=== PATIENT | female | born 1975 | race Caucasian/White ===

== ENCOUNTER 2020-11-28 07:34 | Day surgery (SDC) | payer MEDICARE, MEDICAID ==
[2020-11-21 12:42] LABS: CLARITY,URINE SLIGHTLY CLOUDY (Clear); COLOR,URINE YELLOW (Yellow); GLUCOSE, URINE NEGATIVE (Neg); KETONES,URINE NEGATIVE (Neg); LEUKOCYTE ESTERASE ,URINE MODERATE (Neg); NITRITES, URINE NEGATIVE (Neg); OCCULT BLOOD,URINE NEGATIVE (Neg); PROTEIN,URINE NEGATIVE (Neg); UROBILINOGEN,URINE 0.2 E.U/dL (0.2-1.0)
[2020-11-21 12:42] LABS: BASOPHILS % (AUTO) 0.5 % (0-1); EOSINOPHILS # (AUTO) 0.2 X10'3 (0-0.9); LYMPHOCYTES # (AUTO) 3.3 X10'3 (1.1-4.8); LYMPHOCYTES % (AUTO) 40.1 % (21-51); MEAN CORPUSCULAR HEMOGLOBIN 30.8 PG (27.0-31.0); MEAN CORPUSCULAR HGB CONC 34.2 g/dL (33.0-36.5); MEAN CORPUSCULAR VOLUME 90.1 FL (78-98); MEAN PLATELET VOLUME 8.6 FL (7.4-10.4); MONOCYTES # (AUTO) 0.5 X10'3 (0-0.9); MONOCYTES % (AUTO) 6.2 % (2-12); NEUTROPHILS # (AUTO) 4.2 X10'3 (1.8-7.7); NEUTROPHILS % (AUTO) 50.2 % (42-75); PRE OP HEMATOCRIT 43.2 % (35.0-45.0); PRE OP HEMOGLOBIN 14.7 g/dL (12.0-16.0); PRE OP PLATELET COUNT 351 X10'3 (140-440); RED BLOOD COUNT 4.79 X10'6 (4.20-5.60); RED CELL DISTRIBUTION WIDTH 13.4 % (11.5-14.5)
[2020-11-21 12:47] LABS: UA COLLECTION TYPE CLN CATCH MIDSTREAM
[2020-11-21 12:49] LABS: BACTERIA,URINE 3+ /HPF (Neg); RBC,URINE NONE SEEN /HPF (0-2); SQUAMOUS EPITHELIAL CELL,UR MANY /LPF (FEW)
[2020-11-21 12:53] LABS: PRE OP INR 0.9 INR; PRE OP PROTIME 9.7 SECONDS (9.0-12.0)
[2020-11-21 13:01] LABS: ALBUMIN 4.1 G/DL (3.4-5.0); ALBUMIN/GLOBULIN RATIO 1.1 (1.1-1.5); ALKALINE PHOSPHATASE 110 IU/L (46-116); BLOOD UREA NITROGEN 13 MG/DL (7-18); BUN/CREATININE RATIO 16.5 (6.6-38.0); CALCIUM 9.4 MG/DL (8.5-10.1); CHLORIDE 105 MMOL/L (99-107); CREATININE 0.79 MG/DL (0.40-0.90); PRE OP ALT 29 U/L (30-65); PRE OP ANION GAP 12 (8-16); PRE OP AST 15 U/L (10-37); PRE OP BILIRUB, TOTAL 0.2 MG/DL (0.0-1.0); PRE OP GLUCOSE 93 MG/DL (70-104); PRE OP POTASSIUM 3.9 MMOL/L (3.4-5.1); PRE OP SODIUM 142 MMOL/L (135-145); TOTAL CARBON DIOXIDE 25.2 MMOL/L (24-32); eGFR 78 ML/MIN
[~2020-11-28] VITALS: Ht 157.5 cm; Wt 98.0 kg
[~2020-11-28 07:34] MED LIST: ALBU8HFA PO; ceFOXitin 2GM-NS 100mL ADDvant 100 ML IV ONE; famotidine 20mg tablet PO ONE; ringers solution, lacted 1,000 ML IV SCH
[2020-11-28 07:50] VITALS: BP 98/76
[2020-11-28] MEDS ORDERED: proCHLORperazine 10 MG/2 ml inj IV PRN (08:35)
[2020-11-28] MEDS ORDERED: ondansetron/PF 4mg/2ml inj IV PRN (08:35)
[2020-11-28] MEDS ORDERED: morphine 4 MG/ML inj SYRINge IV PRN (08:35)
[2020-11-28] MEDS ORDERED: morphine 2 MG/ML inj. syringe IV PRN (08:35)
[2020-11-28] MEDS ORDERED: ringers solution, lacted 1,000 ML IV SCH (08:35)
[2020-11-28] MEDS ORDERED: meperidine/PF 25mg/ml syringe IV PRN ×3 (08:35)
[2020-11-28] MEDS ORDERED: albuterol 2.5 MG/3 ML nebule NEB ONE (09:15)
[2020-11-28] MEDS ORDERED: sevoflurane 250ml liquid IH ONE (09:37)
[2020-11-28] MEDS ORDERED: ondansetron/PF 4mg/2ml inj ONE (09:37)
[2020-11-28] MEDS ORDERED: dexamethasone sod phosphate 10mg/ml inj ONE (09:37)
[2020-11-28] MEDS ORDERED: fentaNYL/PF 50MCG/1 ML 2ML syringe ONE ×2 (09:45→09:48)
[2020-11-28] MEDS ORDERED: midazolam 2 mg/2 ml injection ONE (09:45)
[2020-11-28] MEDS ORDERED: LIDOcaine 2% (20mg/ml) 5ml vial ONE (09:46)
[2020-11-28] MEDS ORDERED: propofol inj 20 ML IV ONE (09:46)
[2020-11-28] MEDS ORDERED: ketorolac trometh. 30mg/ml inj. ONE (10:15)
[2020-11-28 10:30] VITALS: BP 99/80
--- NOTE | 2020-11-28 10:30 | NUR ---
ADMITTED TO PACU FROM OR ACCOMPANIED BY ANESTHESIA. INTIAL PHYSICAL ASSESSMENT DONE AND RECORDED. REPORT RECEIVED FROM ANESTHESIA.
[2020-11-28 10:40] VITALS: BP 100/78
[2020-11-28] MEDS ORDERED: HYDROcodone/acetaminophen 10/325mg tab PO ONE (10:40)
[2020-11-28 10:50] VITALS: BP 105/81
[2020-11-28 11:00] VITALS: BP 118/71
[2020-11-28 11:10] VITALS: BP 110/70
--- NOTE | 2020-11-28 11:20 | NUR ---
DISCHARGE CRITERIA MET, DISCHARGE INSTRUCTIONS GIVEN, DEMONSTRATES VERBAL UNDERSTANDING. DISCHARGED HOME IN GOOD CONDITION.
== END 2020-11-28 11:20 | disposition home or self-care (01) ==
LOC: PAS 07:34
PROVIDERS: ATTEND Obstetrics & Gynecology
DX: N93.9 Abnormal uterine and vaginal bleeding, unspecified (principal); J45.909 Unspecified asthma, uncomplicated; E66.01 Morbid (severe) obesity due to excess calories; Z20.828 Contact with and (suspected) exposure to other viral communicable diseases; Z79.899 Other long term (current) drug therapy; Z98.890 Other specified postprocedural states; Z90.49 Acquired absence of other specified parts of digestive tract; Z98.51 Tubal ligation status
CPT/HCPCS: 36415; 58353; 80053; 81001; 82948; 85025; 85610; 85730; 86885; 86900; 86901; 87635; 93005; 94640; 94760; A4649; J0694; J1885; J2001; J2250; J2704; J3010; J7030; A4355; A4618; J1100; J2405; J7120

== ENCOUNTER 2021-03-11 14:08 | Emergency (ER) | payer BC, MEDICARE, MEDICAID ==
[~2021-03-11] VITALS: Ht 157.5 cm; Wt 99.1 kg
[~2021-03-11 14:08] MED LIST changes: -ceFOXitin 2GM-NS 100mL ADDvant 100 ML IV ONE; -famotidine 20mg tablet PO ONE; -ringers solution, lacted 1,000 ML IV SCH
[2021-03-11 14:24] VITALS: BP 113/65
== END 2021-03-11 16:07 | disposition left against medical advice (07) ==
LOC: ER 14:08
DX: M79.641 Pain in right hand (principal); Z53.21 Procedure and treatment not carried out due to patient leaving prior to being seen by health care provider
CPT/HCPCS: 73130

== ENCOUNTER 2021-04-25 19:00 | Emergency (ER) | payer BC, MEDICARE, MEDICAID ==
[~2021-04-25] VITALS: Ht 157.5 cm; Wt 97.7 kg
[2021-04-25 19:06] VITALS: BP 103/82
[2021-04-25] MEDS ORDERED: acetaminophen 325mg tablet PO ONE (20:05)
[2021-04-25] MEDS ORDERED: ketorolac trometh. 30mg/ml inj. IM ONE (20:05)
== END 2021-04-25 21:03 | disposition home or self-care (01) ==
LOC: ER 19:01
DX: S83.91XA Sprain of unspecified site of right knee, initial encounter (principal); J44.9 Chronic obstructive pulmonary disease, unspecified; G89.29 Other chronic pain; F15.90 Other stimulant use, unspecified, uncomplicated; Z87.440 Personal history of urinary (tract) infections; Z90.49 Acquired absence of other specified parts of digestive tract; Z98.890 Other specified postprocedural states; Z72.89 Other problems related to lifestyle; Z79.899 Other long term (current) drug therapy; X50.1XXA Overexertion from prolonged static or awkward postures, initial encounter; Y93.01 Activity, walking, marching and hiking; Y92.89 Other specified places as the place of occurrence of the external cause; Y99.8 Other external cause status
CPT/HCPCS: 96372; 99283; J1885

== ENCOUNTER 2022-03-19 11:06 | Inpatient (IN) | payer BC, MEDICARE, MEDICAID ==
[~2022-03-19] VITALS: Ht 157.5 cm; Wt 96.7 kg
[2022-03-19] MEDS ORDERED: risperiDONE 2mg tablet PO ONE (11:40)
[2022-03-19 11:55] LABS: BASOPHILS % (AUTO) 0.3 % (0-1); EOSINOPHILS % (AUTO) 0 % (0-6); HEMATOCRIT 44.4 % (35.0-45.0); HEMOGLOBIN 14.9 g/dl (12.0-16.0); LYMPHOCYTES # (AUTO) 0.8 X10'3 (1.1-4.8); LYMPHOCYTES % (AUTO) 8.3 % (21-51); MEAN CORPUSCULAR HEMOGLOBIN 30.1 PG (27.0-31.0); MEAN CORPUSCULAR HGB CONC 33.7 g/dL (33.0-36.5); MEAN CORPUSCULAR VOLUME 89.3 FL (78-98); MEAN PLATELET VOLUME 9.3 FL (7.4-10.4); MONOCYTES # (AUTO) 0.7 X10'3 (0-0.9); MONOCYTES % (AUTO) 6.7 % (2-12); NEUTROPHILS # (AUTO) 8.4 X10'3 (1.8-7.7); NEUTROPHILS % (AUTO) 84.7 % (42-75); PLATELET COUNT 324 X10'3 (140-440); RED BLOOD COUNT 4.97 X10'6 (4.20-5.60); RED CELL DISTRIBUTION WIDTH 13.2 % (11.5-14.5); WHITE BLOOD COUNT 9.9 X10'3 (4.5-11.0)
[2022-03-19 12:01] LABS: CLARITY,URINE SLIGHTLY CLOUDY (Clear); COLOR,URINE YELLOW (Yellow); GLUCOSE, URINE 250 mg/dl (Neg); KETONES,URINE NEGATIVE (Neg); LEUKOCYTE ESTERASE ,URINE TRACE (Neg); NITRITES, URINE NEGATIVE (Neg); OCCULT BLOOD,URINE NEGATIVE (Neg); PH,URINE 5.5 (4.8-8.0); PROTEIN,URINE NEGATIVE (Neg); UROBILINOGEN,URINE 0.2 E.U/dL (0.2-1.0)
[2022-03-19 12:03] LABS: URINE HCG NEGATIVE (NEG)
[2022-03-19 12:10] LABS: UA COLLECTION TYPE NON-SPECIFIED
[2022-03-19 12:11] LABS: RBC,URINE NONE SEEN /HPF (0-2); WBC,URINE 30-50 /HPF (0-4)
[2022-03-19 12:12] LABS: ALANINE AMINOTRANSFERASE 43 U/L (12-78); ALBUMIN 4.5 G/DL (3.4-5.0); ALBUMIN/GLOBULIN RATIO 1.3 (1.1-1.5); ALKALINE PHOSPHATASE 85 IU/L (46-116); ANION GAP 15 (8-16); ASPARTATE AMINO TRANSFERASE 29 U/L (10-37); BILIRUBIN,TOTAL 0.8 MG/DL (0.1-1.0); BLOOD UREA NITROGEN 14 MG/DL (7-18); BUN/CREATININE RATIO 14.7 (6.6-38.0); CALCIUM 9.3 MG/DL (8.5-10.1); CHLORIDE 100 MMOL/L (99-107); CREATININE 0.95 MG/DL (0.40-0.90); GLUCOSE 206 MG/DL (70-104); POTASSIUM 3.8 MMOL/L (3.5-5.1); SODIUM 137 MMOL/L (135-145); TOTAL CARBON DIOXIDE 21.7 MMOL/L (24-32); TOTAL PROTEIN 7.9 G/DL (6.4-8.2); eGFR 63 ML/MIN
[2022-03-19 12:12] LABS: BACTERIA,URINE 2+ /HPF (Neg); FINE GRANULAR CAST 0-3 /LPF (NEGATIVE); MUCUS STRANDS FEW /LPF (Neg); SQUAMOUS EPITHELIAL CELL,UR MANY /LPF (FEW)
[2022-03-19 12:14] LABS: URINE AMPHETAMINE SCREEN NEGATIVE (Neg); URINE BARBITUATE SCREEN NEGATIVE (Neg); URINE BENZODIAZEPINES SCREEN NEGATIVE (Neg); URINE CANNABINOID SCREEN NEGATIVE (Neg); URINE COCAINE SCREEN NEGATIVE (Neg); URINE METHADONE SCREEN NEGATIVE (Neg); URINE OPIATE SCREEN NEGATIVE (Neg); URINE PHENCYCLIDINE SCREEN NEGATIVE (Neg)
[2022-03-19] MEDS ORDERED: cephalexin 250mg capsule PO SCH (12:20)
[2022-03-19] MEDS ORDERED: cephalexin 250mg capsule PO ONE (12:20)
[2022-03-19 12:22] LABS: ETHANOL < 0.010 GM/DL (0.0-0.010)
[2022-03-19 12:24] LABS: VALPROATE < 3.0 UG/ML (50-100)
--- NOTE | 2022-03-19 12:35 | NUR ---
Patient arrived from ED to [facility] at 1235. Bed admitted to Bed #22. Patient refused to eat lunch and informed "I ate over in the other side." Patient changed into a hospital gown as their were green hospital scrubs for patients available. Patient being held on a 5150 related to incidents which occurred this morning. Patient has a history of Asthma, UTI, Back Pain & Depression, and surgical history includes appy, cholecystectomy, and tonsillectomy (derived from ED Documentation. PCT met with patient as soon as she arrived to [facility] to instruct to remove clothing. Patient immediately started to argue with her and stated the following "You aren't going to take my belongings, and when asked to remove her shoes so they can be stored in the locker room, patient stated "I don't care, I'm not doing it for you. Patient remained behind the closed curtain while PCT was ready to assist patient to change into her hospital gown, and patient stated "I need my privacy," when the PCT attempted to open the curtain. Attempted to administer Ativan 2mg po at 1400, and patient stated "I'm not taking anymore medication." Explained to the patient that the ED MD ordered Ativan, and she again stated "I'm not taking your medication."
[2022-03-19] MEDS ORDERED: LORazepam 1 MG tablet PO ONE (13:00)
--- NOTE | 2022-03-19 13:41 | NUR ---
Faxed [facility] packet.
--- NOTE | 2022-03-19 14:15 | NUR ---
Completed Physical Assessment and entered results into the computer. Patient is talkative and lacks insight to current situation and why she is here. Patient will not disclose what occurred today that led up to her coming to [facility]. Patient has become less frustrated and more talkative as the day has progressed. Patient will not disclose information about her family, but will list multiple friends that know she is here, and will come up and take her home. Patient has been drinking lots of fluids and using the bathroom frequently throughout the day. Patient appears much calmer than when she initially came over from the ED.
[2022-03-19] MEDS ORDERED: ALBU18HF2 INH (16:31)
[2022-03-19] MEDS ORDERED: LEVO25TA2 PO (16:31)
[2022-03-19] MEDS ORDERED: BUPR150T8 PO (16:31)
[2022-03-19] MEDS ORDERED: DIVA500T9 PO (16:31)
--- NOTE | 2022-03-19 17:19 | NUR ---
Per Saul from [facility], reviewed the 5150 has rewritten to adequately account for today's events and his interview with the patient and specific facts related to the patient. Per Saul the 5150 reads:"5150 completed by [place] [employer] for Danger to Self and mental health evaluation by [facility] Crisis Response Team at [facility]. Additional information is recorded under the section titles "Specific Facts," written as "Sandie is confused, disorganized in thought process; she is unable to report viable plan for food, clothing and care home, has no benefitted from family support." Patient started folding all of the blankets on her bed and putting them on the desk at the Nurse's Station. When asked by FRANK Roca why she was putting the blankets at the Nurse's Station, the patient stated "My family should be here anytime to pick me up."
[2022-03-19] MEDS ORDERED: BUPR-317 PO (17:25)
--- NOTE | 2022-03-19 17:45 | NUR ---
Patient went over to the patient who was in Bed #21, and apologized to him for "talking so loudly, while he was trying to sleep. Patient in Bed #20 did not acknowledge the apology and walked away from the patient. Waiting for dinner at this time. Will continue to monitor.
--- NOTE | 2022-03-19 18:04 | NUR ---
Gave report to FRANK Swenson (NOCS) with questions answered.
--- NOTE | 2022-03-19 18:49 | NUR ---
The patient is sitting at the end of her bed watching staff at the nursing station. One to one with the patient to assess for severity of mental health symptoms. The patient did not eat her dinner and stated that she was waiting for her family to come get her. She then went on to state that she does not have any mental health problems at this time. When asked why she was brought here she was guarded and stated that was between her and her family. Mood appears to be elevated. She denies thoughts of wanting to harm herself or others. Her insight is very poor. She currently is being cooperative with staff.
[2022-03-19] MEDS: buPROPion SR 150mg tablet PO SCH (20:00)
--- NOTE | 2022-03-19 20:17 | NUR ---
The patient took her evening dose of depakote but declined her Wellbutrin explaining that at home she takes it only in the morning
--- NOTE | 2022-03-19 20:59 | NUR ---
The patient is resting on her bed quietly but awake
[2022-03-19] MEDS ORDERED: divalproex sod 250mg ER (24-hour) tablet PO SCH (21:00)
[2022-03-19 21:45] VITALS: BP 140/94
--- NOTE | 2022-03-20 03:32 | NUR ---
ADMIT NOTE: Patient admitted to [facility] at 2132. Patient will not sign any papers or answer any questions. She disagrees with everything said, and responds to questions with her own questions. 5150 states: Sandie is confused, disorganized in thought process. She is unable to report viable plan for food, clothing, and jail, and has not benefitted from family support.
[2022-03-20] MEDS: levoTHYROXINE 25mcg tablet PO SCH (07:48)
[2022-03-20] MEDS: buPROPion SR 150mg tablet PO SCH ×3 (07:48→20:00)
--- NOTE | 2022-03-20 15:18 | NUR ---
Nursing Progress Note: Sandie Legal hold: 5150 Client on involuntary for GD Report received from FRANK Saravia with use of SBAR. Why they are here: 5150 states: Sandie is confused, disorganized in thought process. She is unable to report viable plan for food, clothing, and usp, and has not benefitted from family support. Assessment What has happened this shift: Patient is resting quietly in bed at the start of the shift. Refuses breakfast. Appears paranoid and is resistive to 1:1 assessment. States, If anything happens to me the [unintelligible] know Im here. And the Feds too. Denies any mental health symptoms. Appears to have some paranoia and delusional thinking. Somewhat grandiose. Paces the unit at times. Hyper- verbal and intrusive. S/I, H/I: Denies A/VH: Denies Sleep: 1 hour in the morning. ADL's: Independent Group attendance: No Were meds taken: Yes Any med S/E: None observed or reported. Mental Status Exam Appearance: Middle aged appearing woman, short brown hair, neat, wearing green unit scrubs Eye contact: Good Behavior: Resistive to care, Anxious, social, intrusive Speech: Clear, hyper verbal Mood: Good. Affect: Congruent, full range Thought process: Disorganized, paranoid, tangential Thought Content: Paranoid believing that people are after her. Cognition: A/O x3 to self, place and time Insight: Poor Judgment: Poor Interventions PRN's used: None Therapeutic interventions: 1:1 assessment, establishment of rapport, therapeutic communication, encouraged pt to express her thoughts and feelings, active listening, medication administration/education/monitoring, provided distraction, direction, positive reinforcement, and Q15 minute safety checks. Restraints/seclusion/emergency medication: None Justification of Continued Inpatient Treatment: Pt is still in need of medication adjustments and monitoring in a safe and therapeutic environment until stable.
[2022-03-20 20:02] VITALS: BP 108/76
[2022-03-20] MEDS: divalproex sod 250mg ER (24-hour) tablet PO SCH (20:17)
--- NOTE | 2022-03-21 03:39 | NUR ---
Nursing Progress Note: Legal hold: 5150 Client on involuntary hold for GD Report received from FRANK King with use of SBAR. Why they are here: 5150 states: Sandie is confused, disorganized in thought process. She is unable to report viable plan for food, clothing, and fci, and has not benefitted from family support. Assessment What has happened this shift: Patient was out on the unit at shift change. She asked me how I was doing. I answered, then she began asking intrusive questions of me that I would not answer. The patient will not answer any of my questions, stating, "that is between me and my family. If I talk to anyone, it will be my family." Patient is resistive to all care. She has no problem asking other peers intrusive questions like, "what's wrong with you, why are you here?" Patient comes out of her room for snack time, eats and goes back to her room. Brought her HS meds. She refused Wellbutrin, then decided she would only take one of the four Depakote tablets for 250 mg. "I'm good, I don't need any more." S/I, H/I: Denies A/VH: Denies Sleep: 1 hour in the morning. ADL's: Independent Group attendance: No Were meds taken: Yes, only 250 mg of 1000 mg Depakote. Any med S/E: None observed or reported. Mental Status Exam Appearance: Middle aged appearing woman, short brown hair, neat, wearing green unit scrubs Eye contact: Good Behavior: Resistive to care, Anxious, social, intrusive Speech: Clear, hyper verbal Mood: Good. Affect: Congruent, full range Thought process: Disorganized, paranoid, tangential Thought Content: Paranoid believing that people are after her. Cognition: A/O x3 to self, place and time Insight: Poor Judgment: Poor Interventions PRN's used: None Therapeutic interventions: 1:1 assessment, establishment of rapport, therapeutic communication, encouraged pt to express her thoughts and feelings, active listening, medication administration/education/monitoring, provided distraction, direction, positive reinforcement, and Q15 minute safety checks. Restraints/seclusion/emergency medication: None Justification of Continued Inpatient Treatment: Pt is still in need of medication adjustments and monitoring in a safe and therapeutic environment until stable.
[2022-03-21] MEDS: levoTHYROXINE 25mcg tablet PO SCH (07:20)
[2022-03-21] MEDS: buPROPion SR 150mg tablet PO SCH ×3 (07:25→20:29)
--- NOTE | 2022-03-21 14:03 | NUR ---
Attempted to meet with Sandie to complete psychosocial assessment and she refused then she went on to talk about her friend at [facility] who needs a manager social media instead. Sandie's speech was rapid and pressured. She exhibited flight of ideas and grandiose delusions. Left message for her , Bk (ph# [phone]), requesting a call back as a means of gathering information. Attempted to reach her brother, Henri (ph# [phone]), and was unable to leave a message. JOSE ALEJANDRO Crawley
--- NOTE | 2022-03-21 15:42 | NUR ---
Nursing Progress Note: Sandie Legal hold: 5150 Client on involuntary for GD Report received from FRANK Saravia with use of SBAR. Why they are here: 5150 states: Sandie is confused, disorganized in thought process. She is unable to report viable plan for food, clothing, and fdc, and has not benefitted from family support. Assessment What has happened this shift: Patient is resting quietly in bed at the start of the shift. Paces the unit prior to breakfast and socializes with her peers. Speech is loud and she is intrusive. Refuses Wellbutrin stating she took it yesterday and therefore does not want it today. Patient was reminded that she refused Wellbutrin yesterday as well to which the patient becomes somewhat irritable and paranoid. She states, I dont know what pills you are giving me. They could be anything. S/I, H/I: Denies A/VH: Denies Sleep: 1 hour in the morning. ADL's: Independent Group attendance: No Were meds taken: Refused Wellbutrin Any med S/E: None observed or reported. Mental Status Exam Appearance: Middle aged appearing woman, short brown hair, neat, wearing green unit scrubs Eye contact: Good Behavior: Resistive to care, Anxious, social, intrusive Speech: Clear, hyper verbal Mood: Fine. Affect: Congruent, full range Thought process: Disorganized, paranoid, tangential Thought Content: Paranoid delusions that people are trying to harm her. Cognition: A/O x3 to self, place and time Insight: Poor Judgment: Poor Interventions PRN's used: None Therapeutic interventions: 1:1 assessment, establishment of rapport, therapeutic communication, encouraged pt to express her thoughts and feelings, active listening, medication administration/education/monitoring, provided distraction, direction, positive reinforcement, and Q15 minute safety checks. Restraints/seclusion/emergency medication: None Justification of Continued Inpatient Treatment: Pt is still in need of medication adjustments and monitoring in a safe and therapeutic environment until stable.
[2022-03-21] MEDS: ziprasidone 20mg capsule PO SCH ×2 (20:00→20:29)
[2022-03-21] MEDS: divalproex sod 250mg ER (24-hour) tablet PO SCH ×2 (20:29→21:00)
--- NOTE | 2022-03-21 22:19 | NUR ---
Nursing Progress Note: Sandie Legal hold: 5150 Client on involuntary for GD Report received from FRANK Saravia with use of SBAR. Why they are here: 5150 states: Sandie is confused, disorganized in thought process. She is unable to report viable plan for food, clothing, and senior care, and has not benefitted from family support. Assessment What has happened this shift: Pt was in the group room socializing with peers during the evening. Pt ate meal and snack in the group room. Pt refused HS meds. Pt was provided medications still packaged so she could examine the packages and she thanked me for this. Pt set aside Geodon, stating "I dont take that one." Explained to pt that provider has ordered this medication for her based on her history of taking it in the past. Pt states "Tonya never taken Geodon and Im not taking it now." Pt agreed to take the Wellbutrin so I took it out of the packaging and she stated "I dont take any purple pills." Explained it is the brand the hospital uses. Attempted to provide patient with medication education and she replied, "I have nurses in my family and they are the only ones I will discuss my medication with and they said I only take Welbutrin. Pt then decided she would take the Wellbutrin but not any Depakote. Handed pt the med cup and she states "I will take this to my room and take it later." Explained to pt that I have to be present when she takes medication and that she could not hold on to pills on the floor. Pt argued it is her right. Explained to pt I can bring them to her later when she goes to bed, she states "No I will keep the wellbutrin now, it's my right or Im not taking anything." Pt began to get agitated so I took the meds and left the room. Pt followed me yelling "I have witnesses you can't take my pills! I will call the [employer]! I need a phone!" Telephones were available to patient and she declined to use them demanding to speak to the charge nurse. Explained Charge nurse is on the phone and pt went back to the group room. Pt spent time talking with another patient in group room before going to bed. Offered medications to pt again, and again explained what medications were and she states she would like to discuss the medications with her family. "Besides I dont know who's dirty fingers have been all over those pills!" Explained medication is still in the packaging besides the Wellbutrin opened earlier still in the med cup. Pt states "things have happened in the past that I dont want to talk about but I need to discuss medications with my family." Pt thanked me for understanding and asked me to leave. S/I, H/I: Denies A/VH: Denies Sleep: see sleep hours ADL's: Independent Group attendance: No Were meds taken: Refused all medications Any med S/E: None observed or reported. Mental Status Exam Appearance: Middle aged appearing woman, short brown hair, neat, wearing green unit scrubs Eye contact: Good Behavior: Resistive to care, Anxious, social, intrusive Speech: Clear, hyper verbal Mood: hypomanic Affect: Congruent, full range Thought process: Disorganized, paranoid, tangential, grandiose Thought Content: Paranoid delusions Cognition: A/O x3 to self, place and time Insight: Poor Judgment: Poor Interventions PRN's used: None Therapeutic interventions: 1:1 assessment, establishment of rapport, therapeutic communication, encouraged pt to express her thoughts and feelings, active listening, medication administration/education/monitoring, provided distraction, direction, positive reinforcement, and Q15 minute safety checks. Restraints/seclusion/emergency medication: None Justification of Continued Inpatient Treatment: Pt is still in need of medication adjustments and monitoring in a safe and therapeutic environment until stable.
[2022-03-22] MEDS ORDERED: magnesium hydroxide 30ml (MOM) UD suspension PO PRN (00:15)
[2022-03-22] MEDS ORDERED: mag hydrox/Alum hydrox/simeth 30ml oral suspension PO PRN (00:15)
[2022-03-22] MEDS ORDERED: loperamide 2mg capsule PO PRN (00:15)
[2022-03-22] MEDS ORDERED: acetaminophen 325mg tablet PO PRN ×2 (00:15)
[2022-03-22 07:46] VITALS: BP 106/73
[2022-03-22] MEDS ORDERED: buproprion 150mg XL (24-hour) tablet PO SCH (08:00)
[2022-03-22] MEDS: ziprasidone 20mg capsule PO SCH ×2 (08:00→20:00)
[2022-03-22] MEDS: levoTHYROXINE 25mcg tablet PO SCH (09:00)
[2022-03-22] MEDS: buPROPion SR 150mg tablet PO SCH ×2 (09:00→20:00)
--- NOTE | 2022-03-22 10:46 | NUR ---
Initial: Pt admit for bipolar disorder. Currently on a regular diet and eating well, documented with mostly 100% PO intake meeting estimated nutrient needs. LBM 03/19 though unsure of accuracy as pt documented with no GI symptoms and moderate BM 03/21 per GI trends. PRN bowel care available. No nutrition intervention implemented at this time. Will continue to follow. Recommendations: 1) Continue regular diet 2) Bowel care PRN 3) Weekly scaled weights Addendum: 03/22/22 at [address] Amended: Links added.
--- NOTE | 2022-03-22 13:31 | NUR ---
INFO FROM Spoke to Sandie's , Bk (ph# [phone]), to gather information. He reported he and Sandie got 09/2021. Prior to them getting she was working at [employer] and had insurance through [employer] along with [employer] and Medicare. She had been on SSI prior to working at [employer] (not sure how long she was working there). He reported Sandie went off her medications and refused to see her doctor and refused to allow Bk to assist her with going to the doctor. He reported Sandie kicked him out of the house and he had been sleeping in his truck for the last 6 weeks. He reported Sandie is welcome to return home, however, he does not know if she wants to. Bk reported Sandie has 5 kids, 3 are adults, and the younger two (ages 15 and 17) live with Sandie's sister who has custody of them. He reported all 5 kids do not want anything to do with Sandie due to her mental health issues. Informed Bk of visiting hours and that he can call Sandie. He reported he would like to wait until she is a bit more stable to do so. JOSE ALEJANDRO Crawley
--- NOTE | 2022-03-22 17:35 | NUR ---
Nursing Progress Note: Sandie Legal hold: 5150 Client on involuntary for GD Report received from FRANK Weller with use of SBAR. Why they are here: 5150 states: Sandie is confused, disorganized in thought process. She is unable to report viable plan for food, clothing, and longterm, and has not benefitted from family support. Assessment What has happened this shift: Patient received sleeping in her room at shift change. She joined with peers in the group room for breakfast noted socializing appropriately. Patient endorsed that she is keeping it real this morning. She retreated back to her room after breakfast. Patient asked this scientific technical writer not to point the medication scanner toward her because it is sending a signal to them. Patient observed pointing out the window of her room. Patient endorsed that she is being watched by someone outside the window. She is noted to be paranoid and intrusive. Patient refused to take her scheduled Geodon, stating that her doctor doesnt want her taking it anymore. She denies SI/HI, AH or VH. However, appears to be responding to internal stimuli and VH. She was noted making nonsensical statements endorsing that she doesnt take no ones babies. Patient was observed sitting in her room reading a book periodically throughout the day. She joined in the group room for all meal and snack times today. S/I, H/I: Denies A/VH: Denies, however, appears to be responding to IS and VH Sleep: Pt slept 6.5 hours last night per NOC shift, no naps noted today. ADL's: Independent Group attendance: No group provided Were meds taken: Refused Geodon Any med S/E: None observed or reported. Mental Status Exam Appearance: Middle aged appearing woman, short brown hair, neat, wearing green unit scrubs Eye contact: Good Behavior: Resistive to care, anxious, intrusive Speech: Clear, hyper-verbal Mood: Keeping it real Affect: Congruent, full range Thought process: Disorganized, paranoid, tangential Thought Content: Paranoid delusions that people are watching her Cognition: A/O x3 to self, place and time Insight: Poor Judgment: Poor Interventions PRN's used: None Therapeutic interventions: 1:1 assessment, establishment of rapport, therapeutic communication, encouraged pt to express her thoughts and feelings, active listening, medication administration/education/monitoring, provided distraction, direction, positive reinforcement, and Q15 minute safety checks. Restraints/seclusion/emergency medication: None Justification of Continued Inpatient Treatment: Pt is still in need of medication adjustments and monitoring in a safe and therapeutic environment until stable.
[2022-03-22 19:50] VITALS: BP 142/123
[2022-03-22 19:51] VITALS: BP 131/85
[2022-03-22] MEDS: divalproex sod 250mg ER (24-hour) tablet PO SCH (21:00)
--- NOTE | 2022-03-22 21:00 | NUR ---
Nursing Progress Note: Sandie Legal hold: 5150 Client on involuntary for GD Report received from FRANK Hlul with use of SBAR. Why they are here: 5150 states: Sandie is confused, disorganized in thought process. She is unable to report viable plan for food, clothing, and long-term, and has not benefitted from family support. Assessment What has happened this shift: Pt is social and animated at shift change. She walks the halls talking with peers or on the phone. She is grandiose at times and says things like, "I have family that works here and in the , and they all know I am here. Tell the surveillance that I said michael, and also if they need help, I'm good at surveillance. " She refuses her HS medications after putting off taking them 3x. Each time she would say, "I am busy" or "I can't deal with that right now, it makes me stressed." Pt's 5150 hold is up at 2132 this evening. Pt is to become voluntary. RN spends time with pt going over what voluntary means and shows her the paper to sign. Pt reads the paper and states," So I can't sign this, I need a family member to be here with me. This is the wrong paper." RN reassures pt that this is the correct voluntary form, but she refuses to sign. she states she wants to be here, but will only sign "the right paper." "I am not ready to leave yet, I don't even have a ride." RN reassures pt that signing the paper does not mean she has to leave, but pt still refuses to sign. S/I, H/I: Denies A/VH: Denies but is responding to internal stimuli Sleep: see sleep hours ADL's: Independent Group attendance: No Were meds taken: Refused all medications Any med S/E: None observed or reported. Mental Status Exam Appearance: Middle aged appearing woman, short brown hair, neat, wearing green unit scrubs Eye contact: Good Behavior: Resistive to care, animated Speech: Clear, hyper verbal Mood: hypomanic Affect: Congruent Thought process: Disorganized, paranoid, grandiose Thought Content: Paranoid delusions Cognition: A/O x3 to self, place and time Insight: Poor Judgment: Poor Interventions PRN's used: None, declined all Therapeutic interventions: 1:1 assessment, establishment of rapport, therapeutic communication, encouraged pt to express her thoughts and feelings, active listening, medication administration/education/monitoring, provided distraction, direction, positive reinforcement, and Q15 minute safety checks. Restraints/seclusion/emergency medication: None Justification of Continued Inpatient Treatment: Pt is still in need of medication adjustments and monitoring in a safe and therapeutic environment until stable.
--- NOTE | 2022-03-22 23:00 | NUR ---
SLEEP NOTE PT is still awake at Q15 rounds, RN offers her PRN sleep medications but she declines. "I don't need those, because I am about to go to sleep, so please leave, thank you."
[2022-03-23] MEDS: ziprasidone 20mg capsule PO SCH ×2 (08:00→20:00)
[2022-03-23] MEDS: levoTHYROXINE 25mcg tablet PO SCH (09:04)
[2022-03-23] MEDS: buPROPion SR 150mg tablet PO SCH ×2 (09:04→20:00)
--- NOTE | 2022-03-23 17:11 | NUR ---
Nursing Progress Note: Sandie Legal hold: Voluntary Client on involuntary for GD Report received from Sandra Zartae RN with use of SBAR. Why they are here: 9895 states: Sandie is confused, disorganized in thought process. She is unable to report viable plan for food, clothing, and senior care, and has not benefitted from family support. Assessment What has happened this shift: Patient received sleeping in her room at shift change. She joined in the group room for breakfast with peers. Patient refused to take her scheduled Geodon, stating that she doesnt take capsules. She continues to present as disorganized, paranoid and intrusive. Patient refused vital sign monitoring this morning. She was observed crying quietly in the group room after breakfast. Upon interaction patient endorsed that she is not crying because shes psychotic. Patient proceeded to endorse that she was going to write down why she was crying but was unable to tell this contract technical writer. She continues to deny SI/HI, AH or VH. However, appears to be internally preoccupied. She was noted to be social with other peers on the unit. Patient was noted making nonsensical statements throughout the shift. She joined in the group room for all meal and snack times today. S/I, H/I: Denies A/VH: Denies, however, appears to be internally preoccupied Sleep: Pt slept 5.5 hours last night per NOC shift, no naps noted today. ADL's: Independent Group attendance: No group provided Were meds taken: Refused Geodon Any med S/E: None observed or reported. Mental Status Exam Appearance: Middle aged appearing woman, short brown hair, neat, wearing green unit scrubs Eye contact: Good Behavior: Resistive to care, anxious, intrusive Speech: Clear, hyper-verbal Mood: Hypomanic Affect: Congruent, full range Thought process: Disorganized, paranoid, tangential Thought Content: Meeting needs. Cognition: A/O x3 to self, place and time Insight: Poor Judgment: Poor Interventions PRN's used: None Therapeutic interventions: 1:1 assessment, therapeutic communication, encouraged pt to express her thoughts and feelings, active listening, medication administration/education/monitoring, provided distraction, direction, positive reinforcement, and Q15 minute safety checks. Restraints/seclusion/emergency medication: None Justification of Continued Inpatient Treatment: Pt is still in need of medication adjustments and monitoring in a safe and therapeutic environment until stable.
[2022-03-23] MEDS: divalproex sod 250mg ER (24-hour) tablet PO SCH (21:00)
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
[2022-03-24] MEDS: buPROPion SR 150mg tablet PO SCH ×3 (07:25→20:11)
[2022-03-24] MEDS: ziprasidone 20mg capsule PO SCH ×3 (07:27→20:11)
[2022-03-24] MEDS: levoTHYROXINE 25mcg tablet PO SCH (07:27)
[2022-03-24 07:40] VITALS: BP 124/86
[2022-03-24 08:25] LABS: CHOLESTEROL 157 MG/DL (0-200); HDL CHOLESTEROL 52 MG/DL (35-60); LDL CHOLESTEROL 79 MG/DL (50-100); TRIGLYCERIDES 138 MG/DL (20-135)
[2022-03-24 08:46] LABS: HEMOGLOBIN A1C 5.8 % (4.5-6.2)
--- NOTE | 2022-03-24 16:53 | NUR ---
Nursing Progress Note: Sandie Legal hold: Voluntary Client on involuntary for GD Report received from Sandra Zarate RN with use of SBAR. Why they are here: 5118 states: Sandie is confused, disorganized in thought process. She is unable to report viable plan for food, clothing, and residential, and has not benefitted from family support. Assessment What has happened this shift: Patient was observed walking around the unit socializing with another peer at shift change. She initially refused her routine blood draw this morning endorsing that she doesnt like the laundry detergent. Patient agreed to have blood drawn and was noted crying the entire time requiring comforting from staff. She continues to present as disorganized, anxious, paranoid and intrusive. Patient refused her scheduled Geodon this morning endorsing that she doesnt take that. Medication education provided to patient, however, she continued to decline. Patient denies SI/HI, AH or VH. However, appears to be internally preoccupied. She is noted making comments about being followed and watched, however, is unwilling to emphasize. When asked questions patient responds that it is her business and she doesnt need to tell anybody. Patients daughter called to talk to her later in the shift. Patient was notified and endorsed that she did not want to talk to her daughter. She is noted to be social with other peers on the unit. Patient was noted making nonsensical statements throughout the shift. She joined in the group room for all meal and snack times today. S/I, H/I: Denies A/VH: Denies, however, appears to be internally preoccupied Sleep: Pt slept 7 hours last night per NOC shift, no naps noted today. ADL's: Independent Group attendance: No Were meds taken: Refused Geodon Any med S/E: None observed or reported. Mental Status Exam Appearance: Middle aged appearing woman, short brown hair, neat, wearing green unit scrubs Eye contact: Good Behavior: Resistive to care, anxious, intrusive Speech: Clear, hyper-verbal Mood: Hypomanic Affect: Congruent, full range Thought process: Disorganized, paranoid, tangential Thought Content: Meeting needs. Cognition: A/O x3 to self, place and time Insight: Poor Judgment: Poor Interventions PRN's used: None Therapeutic interventions: 1:1 assessment, therapeutic communication, encouraged pt to express her thoughts and feelings, active listening, medication administration/education/monitoring, provided distraction, direction, positive reinforcement, and Q15 minute safety checks. Restraints/seclusion/emergency medication: None Justification of Continued Inpatient Treatment: Pt is still in need of medication adjustments and monitoring in a safe and therapeutic environment until stable.
[2022-03-24 20:00] VITALS: BP 144/84
[2022-03-24] MEDS: divalproex sod 250mg ER (24-hour) tablet PO SCH ×2 (20:11→21:00)
--- NOTE | 2022-03-25 01:51 | NUR ---
Nursing Progress Note: Sandie Legal hold: Voluntary Client on involuntary for GD Report received from Lizzie MARIE with use of SBAR. Why they are here: 8535 states: Sandie is confused, disorganized in thought process. She is unable to report viable plan for food, clothing, and group home, and has not benefitted from family support. Assessment What has happened this shift: Patient pacing the unit at change of shift. Pt initially refused vitals but this board writer was able to establish rapport with patient and got vital signs while she was standing in the hallway. Patient rambles on about I am not going to hurt anyone and I am not into body parts or anything. She refused her HS medications stating she will need to talk to the Dr about it because it doesnt look right. Pt up for snacks and made a phone call then went to bed. Pt restless for sleep and refused any sleeping aids. S/I, H/I: Denies A/VH: Denies, however, appears to be internally preoccupied Sleep: ADL's: Independent Group attendance: No Were meds taken: Refused HS meds Any med S/E: None observed or reported. Mental Status Exam Appearance: Middle aged appearing woman, short brown hair, neat, wearing green unit scrubs Eye contact: Good Behavior: Resistive to care, anxious, intrusive Speech: Clear, hyper-verbal Mood: Hypomanic Affect: Congruent, full range Thought process: Disorganized, paranoid, tangential Thought Content: Meeting needs. Cognition: A/O x3 to self, place and time Insight: Poor Judgment: Poor Interventions PRN's used: None Therapeutic interventions: 1:1 assessment, therapeutic communication, encouraged pt to express her thoughts and feelings, active listening, medication administration/education/monitoring, provided distraction, direction, positive reinforcement, and Q15 minute safety checks. Restraints/seclusion/emergency medication: None Justification of Continued Inpatient Treatment: Pt is still in need of medication adjustments and monitoring in a safe and therapeutic environment until stable.
[2022-03-25] MEDS: levoTHYROXINE 25mcg tablet PO SCH (07:35)
[2022-03-25] MEDS: buPROPion SR 150mg tablet PO SCH ×2 (07:38→20:00)
[2022-03-25] MEDS: ziprasidone 20mg capsule PO SCH ×2 (08:00→20:00)
--- NOTE | 2022-03-25 16:58 | NUR ---
Nursing Progress Note: Legal hold: Voluntary Client on voluntary GD Report received from nurse with use of SBAR: Sandra Skaggs RN Why are they here: 3721 states: Sandie is confused, disorganized in thought process. She is unable to report viable plan for food, clothing, and prison, and has not benefitted from family support. Assessment What has happened this shift: Received pt. sleeping in bed at the beginning of the shift, she awoke early and was observed to be talking on the telephone. This medical technical writer overheard pt. making what appeared to be grandiose delusional statements, "I stay up at night, doctors and nurses like me stay up at night." This medical technical writer greeted pt. and attempted to establish rapport, she presents as resistive to care, slightly irritable, and guarded. Pt. refused her scheduled Geodon reporting that she wants to wait and talk to her doctor in [place] before taking it, this was endorsed to WALT Conde. Pt. continued on in tangental and disorganized manner stating "I'm not prejudice and I'm not scared!" She denies any S/I, H/I, or A/V/SINGLETARY however appears to be internally preoccupied AEB observed to be talking aloud to herself at times. Pt. then goes on make further delusional statements in a sarcastic, slightly irritable manner regarding her belief that she knows more than other pediatric medical assistant. She then abruptly walked away refusing vital signs or physical assessment, stating, "No! You smell funny!" Pt. napped intermittently during the day and was observed to be interacting with others at intervals. S/I, H/I: Denies A/VH: Pt. denies any A/V/SINGLETARY, however she appears to be internally preoccupied AEB observed to be talking aloud to herself at times Sleep: Sleep hours are 3, pt. napped intermittently during the shift ADL's: Requires dome direction Group attendance: N/A Were meds taken: Pt. refused scheduled Geodon, this was endorsed to WALT Conde Any med S/E: None Mental Status Exam Appearance: Hair and clothing are somewhat disheveled Eye contact: Fair Behavior: Resistive to care, slightly irritable, and guarded Speech: Pressured Mood: Slightly irritable and guarded Affect: Labile Thought process: Tangental with disorganization Thought Content: Possible A/V/SINGLETARY and delusions Cognition: A&O X3 Insight: Poor Judgment: Poor Interventions PRN's used: None Therapeutic interventions:Introduced self and attempted to establish rapport, maintained a safe and supportive environment, ensured contract for safety, provided clear and simple instructions, provided medication education and encouragement, and maintained Q 15 min. safety checks. Restraints/seclusion/emergency medication: N/A Justification of Continued Inpatient Treatment: WALT Angel, pt. continues to require a safe and supportive environment and does not have a safe plan for discharge at this time.
[2022-03-25 19:33] VITALS: BP 125/84
[2022-03-25] MEDS: divalproex sod 250mg ER (24-hour) tablet PO SCH (21:00)
--- NOTE | 2022-03-26 00:09 | NUR ---
NURSING PROGRESS NOTE Legal Status: Voluntary Reason For Admit: 5150 states: Sandie is confused, disorganized in thought process. She is unable to report viable plan for food, clothing, and halfway, and has not benefitted from family support. What Happened This Shift: As a staff member was doing pts vital signs, an albuterol inhaler fell out of her pocket which was confiscated. Rn asks pt about the inhaler, she replies I had 3 inhalers, 1 in my house, one in my bag which they took, and one in my bra I have had it and it is my rescue inhaler so I need that. RN explained to pt why no medications are allowed on your person on the unit, she replied, you can go now. When asked about HS medications she replies, I cant talk about this right now because I am in the middle of something. When RN approaches pt again about HS medications, she refuses to take them and hands Rn a small handwritten note stating she bathes herself in her room and not the shower. discharge: Patient in need of crisis interruption and stabilization with medication management and monitoring in a safe and therapeutic environment until stable.
[2022-03-26] MEDS: ziprasidone 20mg capsule PO SCH ×2 (08:00→20:00)
[2022-03-26] MEDS: levoTHYROXINE 25mcg tablet PO SCH (08:14)
[2022-03-26] MEDS: buPROPion SR 150mg tablet PO SCH ×2 (08:14→20:00)
--- NOTE | 2022-03-26 17:03 | NUR ---
Nursing Progress Note: LIZ Legal hold: Voluntary Client on voluntary hold for GD Report received from RN with use of SBAR. Why they are here: Liz is confused, disorganized in thought process. She is unable to report viable plan for food, clothing, and fpc, and has not benefitted from family support. Assessment What has happened this shift: Patient was greeted in her room and asked to not be approached for medications until breakfast time. She refuses to answer any assessment questions and says its her business. I approached patient with her medications while she was eating breakfast and she asked to see the packaging of each medication, refusing to take Geodon. She says she needs to speak to her doctor in [place] about the Geodon. She attended the first group meeting and goes back and forth between her room and the community room. S/I, H/I: Denies A/VH: Denies Sleep: 1 hour in the morning. ADL's: Independent Group attendance: 1st group Were meds taken: Yes, all except Geodon. Says she will not take Geodon until she speaks to her doctor from [place] about it. Any med S/E: None observed or reported. Mental Status Exam Appearance: Middle aged appearing woman, short brown hair, neat, wearing green unit scrubs Eye contact: Good Behavior: Resistive to care, Anxious, intrusive Speech: Clear, hyper verbal Mood: Good. Affect: Congruent, full range Thought process: Disorganized, paranoid, tangential Thought Content: Paranoid believing that people are after her or trying to get in her business Cognition: A/O x3 to self, place and time Insight: Poor Judgment: Poor Interventions PRN's used: None Therapeutic interventions: 1:1 assessment, attempting to establish rapport, therapeutic communication, encouraged pt to express her thoughts and feelings, active listening, medication administration/education/monitoring, provided distraction, direction, positive reinforcement, and Q15 minute safety checks. Restraints/seclusion/emergency medication: None Justification of Continued Inpatient Treatment: Pt is still in need of medication adjustments and monitoring in a safe and therapeutic environment until stable.
[2022-03-26 20:00] VITALS: BP 105/72
[2022-03-26] MEDS: divalproex sod 250mg ER (24-hour) tablet PO SCH (21:00)
--- NOTE | 2022-03-26 23:37 | NUR ---
Nursing Progress Note: LIZ Legal hold: Voluntary Client on voluntary hold for GD Report received from RN with use of SBAR. Why they are here: Liz is confused, disorganized in thought process. She is unable to report viable plan for food, clothing, and skilled nursing, and has not benefitted from family support. Assessment What has happened this shift: Patient was in the community room watching TV with peers. Pt was sitting having her vitals done. Pt stated she couldnt talk to this internal communications writer while having her vitals done. Later pt was in the hallway with a stack of papers looking at a picture when this RN approached her. Pt stated she was doing ok and that she was writing down some things to keep her grounded. She refused HS meds stating that she needed to talk to her Dr in the [place] to get them straightened out. The pt then stated to this RN, I dont want to talk to you anymore only with Willem and my psychiatrist. Pt walked off to her room. S/I, H/I: Denies A/VH: Denies Sleep: ADL's: Independent Group attendance: Were meds taken: Refused HS meds Any med S/E: None observed or reported. Mental Status Exam Appearance: Middle aged appearing woman, short brown hair, neat, wearing green unit scrubs Eye contact: Good Behavior: Resistive to care, Anxious, intrusive Speech: Clear, hyper verbal Mood: Good. Affect: Congruent, full range Thought process: Disorganized, paranoid, tangential Thought Content: Paranoid believing that people are after her or trying to get in her business Cognition: A/O x3 to self, place and time Insight: Poor Judgment: Poor Interventions PRN's used: None Therapeutic interventions: 1:1 assessment, attempting to establish rapport, therapeutic communication, encouraged pt to express her thoughts and feelings, active listening, medication administration/education/monitoring, provided distraction, direction, positive reinforcement, and Q15 minute safety checks. Restraints/seclusion/emergency medication: None Justification of Continued Inpatient Treatment: Pt is still in need of medication adjustments and monitoring in a safe and therapeutic environment until stable.
[2022-03-27 08:00] VITALS: BP 122/80
[2022-03-27] MEDS: buPROPion SR 150mg tablet PO SCH (08:00)
[2022-03-27] MEDS: levoTHYROXINE 25mcg tablet PO SCH (08:00)
[2022-03-27] MEDS: ziprasidone 20mg capsule PO SCH (08:00)
--- NOTE | 2022-03-27 14:00 | NUR ---
TELEGRAPH MESSENGER IN ROOM: Upon entering patients room she was observed playing with a retread operator in her hands. The retread operator was confiscated and patient was reminded of unit rules. Patient endorsed that she has had the retread operator since she got here. Charge nurse made aware of situation.
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
[2022-03-27 19:47] VITALS: BP 121/82
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
[2022-03-28] MEDS: levoTHYROXINE 25mcg tablet PO SCH (07:58)
--- NOTE | 2022-03-28 16:59 | NUR ---
Nursing Progress Note: Sandie Legal hold: Voluntary Client on involuntary for GD Report received from FRANK Weller with use of SBAR. Why they are here: 2065 states: Sandie is confused, disorganized in thought process. She is unable to report viable plan for food, clothing, and half-way, and has not benefitted from family support. Assessment What has happened this shift: Patient received sleeping in bed at shift change. She refused morning assessment and vital sign monitoring despite several attempts and encouragement. Patient endorsed that nobody is to touch her due to her [place]. Patient also endorsed to this investment underwriter that she is [place] and has an privacy attorney so she cant be touched. She was receptive to her scheduled Synthroid medication this morning. Patient joined in the group room for breakfast with peers. She continues to present as irritable, guarded, withdrawn, and disorganized. Patient was observed writing pages upon pages of notes down on paper. She endorsed that she is writing down her thoughts but they are her personal business only. Patient noted carrying around a large stack of papers that she has written copious notes down on, refusing to set them down for even a brief moment. She denies SI/HI, AH or VH. However, appears to be internally preoccupied. She was noted making nonsensical statements throughout the shift. Patient unwilling to engage in conversation with this investment underwriter. When asked questions, patient endorses that she would like to talk to her psychiatrist about it but not the doctor here. She was noted isolating to her room the majority of the day. Patient observed writing down notes in her room throughout the day. Patient endorsed that she is frustrated but not frustrated when people disrupt her while she is writing down her thoughts. She joined in the group room for all meal and snack times today. S/I, H/I: Denies A/VH: Denies, however, appears to be internally preoccupied Sleep: Pt slept 3.75 hours last night per NOC shift, napped intermittently today. ADL's: Independent Group attendance: N/A Were meds taken: Took her scheduled Synthroid Any med S/E: None observed or reported. Mental Status Exam Appearance: Middle aged appearing woman, short brown hair, neat, wearing green unit scrubs Eye contact: Good Behavior: Resistive to care, anxious, intrusive, irritable Speech: Clear, hyper-verbal Mood: Hypomanic Affect: Congruent, full range Thought process: Disorganized, paranoid, tangential Thought Content: Meeting needs. Refuses to engage in conversation. Cognition: A&O x3 to self, place and time Insight: Poor Judgment: Poor Interventions PRN's used: None Therapeutic interventions: 1:1 assessment, therapeutic communication, encouraged pt to express her thoughts and feelings, active listening, medication administration/education/monitoring, provided distraction, direction, positive reinforcement, and Q15 minute safety checks. Restraints/seclusion/emergency medication: None Justification of Continued Inpatient Treatment: Pt is still in need of medication adjustments and monitoring in a safe and therapeutic environment until stable.
[2022-03-28] MEDS: olanzapine 10mg tablet PO SCH (20:43)
--- NOTE | 2022-03-29 01:17 | NUR ---
Nursing Progress Note: Sandie Legal hold: Voluntary Client on involuntary for GD Report received from FRANK Samuel with use of SBAR. Why they are here: 5150 states: Sandie is confused, disorganized in thought process. She is unable to report viable plan for food, clothing, and detention, and has not benefitted from family support. Assessment What has happened this shift: Patient received pacing the hallways with a stack of papers in her hand. She appears guarded, irritable, disorganized and withdrawn. When asking pt about her MH status she tells this RN that she is too busy to talk and walks away. She later asks this RN for some coffee and when told its at snack time 8PM she states oh yeah, Tonya been told that and were going to get that changed. She refuses assessment and her HS Alyce stating she needs to talk to her psychiatrist about medications. Pt retired to her room where she is talking with herself and making notes. Therapeutic interventions: 1:1 assessment, therapeutic communication, encouraged pt to express her thoughts and feelings, active listening, medication administration/education/monitoring, provided distraction, direction, positive reinforcement, and Q15 minute safety checks. Restraints/seclusion/emergency medication: None Justification of Continued Inpatient Treatment: Pt is still in need of medication adjustments and monitoring in a safe and therapeutic environment until stable.
[2022-03-29] MEDS: levoTHYROXINE 25mcg tablet PO SCH (09:39)
--- NOTE | 2022-03-29 17:50 | NUR ---
Nursing Progress Note: Legal hold: Voluntary Client on involuntary for GD Report received from FRANK Weller with use of SBAR. Why they are here: 7330 states: Sandie is confused, disorganized in thought process. She is unable to report viable plan for food, clothing, and assisted, and has not benefitted from family support. Assessment What has happened this shift: Received patient while she was sleeping in bed. Patient woke up before breakfast and was sitting in her room. Entered patients room at approximately 0750, with the computer, and patient immediately stated Oh, Meryl, I dont want you to come into my room Asked patient why? Patient stated I really dont like any of you entering my room for any reason. You all make me feel uncomfortable, and I dont want you in here. You know I really like you, but dont come in. Informed the patient that she is currently here on Voluntary Status. I informed the patient, and focused on giving her current information about her treatment plan. Informed the patient that she can go anytime she likes. I would just need to call the ahead of time before releasing you to get discharge orders. I also informed the patient that she is not in agreement to taking any medications that her Psychiatrist would like to order for her, so it is difficult to start feeling better and making good sound decisions about her life. I also informed the patient that she does not communicate with any peers or staff members, or attend Group Meetings. We do all of these things in this department to help all of our patients get better and transition back to home with the family. I asked the patient if we could talk to her family today about a plan to return home. Patient stated I dont think I am ready to go home yet. I informed the patient that she is not participating in any way with our program to improve her life and make good decisions, that she doesnt eat and each of these things are a hourly negotiation with all staff members. Patient smiled and wrote down what I said to her which was fine with me. I asked the patient to think about this over the next 24 hours. I also informed the patient that we need to enter the room from time to time, and it is not appropriate to tell staff they cannot enter the room. Informed patient that when I speak to her and complete the patient assessment and interview, I will come in her room for privacy during the conversation. Patient continued to self-isolate in her room, starting blaming her roommate for taking pillows off her bed, which was not accurate. S/I, H/I: Denies A/VH: Denies, however, appears to be internally preoccupied Sleep: 5.5 hours ADL's: Independent, Refuses to shower since admission. Group attendance: Were meds taken: Took her scheduled Synthroid Any med S/E: None observed or reported. Mental Status Exam Appearance: Middle aged appearing woman, short brown hair, neat, wearing green unit scrubs Eye contact: Good Behavior: Resistive to care, anxious, intrusive, irritable Speech: Clear, hyper-verbal Mood: Hypomanic Affect: Congruent, full range Thought process: Disorganized, paranoid, tangential Thought Content: Meeting needs. Refuses to engage in conversation. Cognition: A&O x3 to self, place and time Insight: Poor Judgment: Poor Interventions PRN's used: None Therapeutic interventions: 1:1 assessment, therapeutic communication, encouraged pt to express her thoughts and feelings, active listening, medication administration/education/monitoring, provided distraction, direction, positive reinforcement, and Q15 minute safety checks. Restraints/seclusion/emergency medication: None Justification of Continued Inpatient Treatment: Pt is still in need of medication adjustments and monitoring in a safe and therapeutic environment until stable.
[2022-03-29] MEDS: olanzapine 10mg tablet PO SCH (20:21)
--- NOTE | 2022-03-30 00:03 | NUR ---
Nursing Progress Note: Legal hold: Voluntary Report received from Sonali King art department head Why they are here: 0900 states: Sandie is confused, disorganized in thought process. She is unable to report viable plan for food, clothing, and mcc, and has not benefitted from family support. Assessment What has happened this shift: The patient has been up on the unit. She is appropriately dressed and neatly groomed. She is carrying a stack of papers that appear to be crammed with disorganized writing. She is dismissive whenever approached for an evening assessment. She repeatedly stated it was no ones business how she is doing and quickly becomes irritable. She stated that she is waiting for her family to get here but when asked when her family is coming she states it is no ones business. When asked when she had a bowel movement she replied, "That's my own personal business" She refused her HS zyprexa and stated the reason was because the med had, "caused my eyes to indotted in" She is attempting to direct staff and how they should care for the other patients and had to be redirected. When a female peer became agitated she went up to the patient and was in her personal space and had to be redirected. She remains gravely disabled but is currently hospitalized on a voluntary basis and has no court order for medications.
[2022-03-30] MEDS: levoTHYROXINE 25mcg tablet PO SCH ×2 (07:51→07:54)
--- NOTE | 2022-03-30 16:00 | NUR ---
Reassessment: Pt continues eating well with mostly 75-100% PO intake of meals and appears to be participating in snacks per application systems architect. Overall meeting estimated nutrient needs. [facility] 03/29. No nutrition intervention implemented at this time. Will continue to follow. Recommendations: 1) Continue regular diet 2) Bowel care PRN 3) Weekly scaled weights Addendum: 03/30/22 at [address] Amended: Links added.
--- NOTE | 2022-03-30 16:06 | NUR ---
Nursing Progress Note: Sandie Legal hold: Voluntary Client on involuntary for GD Report received from Sandra Skaggs RN with use of SBAR. Why they are here: 8770 states: Sandie is confused, disorganized in thought process. She is unable to report viable plan for food, clothing, and usp, and has not benefitted from family support. Assessment What has happened this shift: Received patient asleep. Pt. awoke for her medication and immediately became agitated and paranoid. Pt. refused her scheduled synthroid, and reported I know that medication made my pupils dilate I attempted to educate pt. about her medication and diagnosis requiring this medication, but she refused to listen and stated get out, we are done talking 1:1 assessment incomplete d/t pt. refusal to participate. Pt. ate her meals in the dining room with cohorts, but often isolated herself from others, she was observed looking around suspiciously with darting eyes. Pt. spent most of the shift in her room sitting on the edge of her bed or in the chair. Reports from nursing staff were pt. was observed responding to IS and speaking in a language other than [place]. Pt. was re approached later to complete assessment, but she refuses to talk stating I dont need you, I want my managing attorney. Staff notified telegraphic typewriter repairer pt. was disruptive during Bingo and left while responding to IS. S/I, H/I: Refused to answer A/VH: Refused to answer, presents as internally preoccupied Sleep: 4.75 hrs per NOC, no naps ADL's: Independent, shower refused Group attendance: No Were meds taken: Refused Any med S/E: None observed or reported. Mental Status Exam Appearance: Middle aged female, short hair, and wearing unit scrubs Eye contact: Good Behavior: Anxious, agitated Speech: Hyper-verbal Mood: Hypomanic Affect: Congruent with mood Thought process: Disorganized, paranoid, delusional Thought Content: Meeting needs Cognition: A&O x3 to self, place and time Insight: Poor Judgment: Poor Interventions PRN's used: None Therapeutic interventions: 1:1 assessment, therapeutic communication, encouraged pt to express her thoughts and feelings, active listening, medication administration/education/monitoring, provided distraction, direction, positive reinforcement, and Q15 minute safety checks. Restraints/seclusion/emergency medication: None Justification of Continued Inpatient Treatment: Pt is still in need of medication adjustments and monitoring in a safe and therapeutic environment until stable.
[2022-03-30] MEDS: olanzapine 10mg tablet PO SCH (21:00)
--- NOTE | 2022-03-31 03:35 | NUR ---
NURSING PROGRESS NOTE Legal Status: Voluntary Reason For Admit: 5150 states: Sandie is confused, disorganized in thought process. She is unable to report viable plan for food, clothing, and chcf, and has not benefitted from family support. What Happened This Shift: Pt refused vital signs and physical assessment. She is very resistive to care and is dismissive of staff members. RN approaches pt and she says, "um can you please knock and announce your name " I am busy, please go away, thanks." Pt is still refusing HS medications and will not answer 1:1 questions with RN. discharge: Patient in need of crisis interruption and stabilization with medication management and monitoring in a safe and therapeutic environment until stable.
[2022-03-31] MEDS: levoTHYROXINE 25mcg tablet PO SCH (07:46)
--- NOTE | 2022-03-31 15:25 | NUR ---
Nursing Progress Note: Sandie Legal hold: Voluntary Client on involuntary for GD Report received from Sandra Skaggs RN with use of SBAR. Why they are here: 4264 states: Sandie is confused, disorganized in her thought process. She is unable to report viable plan for food, clothing, and group home, and has not benefitted from family support. Assessment What has happened this shift: Received patient awake in bed. Pt. refused her routine medications this morning stating Iv talked to allot of people about those medications, I dont want anything from you Pt. could not be educated and has fixed beliefs re this issue. Later senior underwriter reproached pt. and attempted to complete 1:1 assessment; pt. jumped out of bed and stormed to the bathroom stating get the hell out Full assessment unable to be completed. Pt. did leave her room for meals and ate in the dining room with cohorts. She remains isolated and paranoid. Later in the afternoon pt. could be heard yelling and was found to be responding to IS. S/I, H/I: Refused A/VH: Refused, observed responding to IS Sleep: 7.25 hrs per NOC, no naps ADL's: Independent Group attendance: N/A Were meds taken: Refused Any med S/E: None observed or reported. Mental Status Exam Appearance: Middle aged female, short hair, and wearing unit scrubs Eye contact: Fair Behavior: Irritable Speech: Hyper-verbal at times Mood: Hypomanic Affect: Congruent with mood Thought process: Disorganized, paranoid, delusional Thought Content: Meeting needs Cognition: A&O x3 to self Insight: Poor Judgment: Poor Interventions PRN's used: None Therapeutic interventions: 1:1 assessment, therapeutic communication, encouraged pt to express her thoughts and feelings, active listening, medication administration/education/monitoring, provided distraction, direction, positive reinforcement, and Q15 minute safety checks. Restraints/seclusion/emergency medication: None Justification of Continued Inpatient Treatment: Pt is still in need of medication adjustments and monitoring in a safe and therapeutic environment until stable.
[2022-03-31] MEDS: olanzapine 10mg tablet PO SCH (21:00)
--- NOTE | 2022-04-01 01:36 | NUR ---
NURSING PROGRESS NOTE Legal Status: Voluntary Reason For Admit: 5150 states: Sandie is confused, disorganized in thought process. She is unable to report viable plan for food, clothing, and penitentiary, and has not benefitted from family support. What Happened This Shift: Pt is more visible on the unit this shift, sitting in the community room at a table with a stack of papers strewn about. When Rn approaches her and introduces herself, pt waves her off and says," yea okay, I will let you know if I need you, thanks, bye." She is very resistive to care and refuses vitals and 1:1 assessment. Pt walks by RN again and tells her she looks like someone she knows. When approached about her HS medication, she states, "not now, thanks" and briskly walks away. This happens a second time as well. PT does not take her HS medication. discharge: Patient in need of crisis interruption and stabilization with medication management and monitoring in a safe and therapeutic environment until stable.
[2022-04-01] MEDS: levoTHYROXINE 25mcg tablet PO SCH (08:00)
--- NOTE | 2022-04-01 17:52 | NUR ---
Nursing Progress Note: Legal hold: Voluntary Client on involuntary for GD Report received from FRANK Hughes with use of SBAR. Why they are here: 8890 states: Sandie is confused, disorganized in thought process. She is unable to report viable plan for food, clothing, and halfway, and has not benefitted from family support. Assessment What has happened this shift: Received patient while she was sleeping in bed. Patient woke up and came down to the dining room with a large pile of papers that had handwritten pen all over them. Patient talked to herself during breakfast and lunch, and during most of the day in the Community Room. Patient is resistive to care. and refused her Synthroid, that was due at 0800. Patient responded with very short answers while walking away from staff immediately after question was asked of her. Patient entered the Community Room and began sitting her papers down she carried in her arms, would look the patients that were sitting at the table with a negative expression, pick her papers up and walk to a different table, doing the same practice at 4 tables prior to settling in to one spot at one table. Called patients name just before her breakfast tray arrived. She walked up to my computer in the Community Room, then said What? Informed the Patient that I would like to give her the Synthroid, and she stated For what, informed the patient it was for Thyroid Replacement, and patient started arguing about the way that I pronounced the Synthroid. 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 Again asked patient to give me an answer whether she was going to take her Synthroid? Patient stated No. and walked away. The patient then walked over to a table and said I cant believe she is a Nurse. Multiple peers corrected the patient stating She is a Nurse and I dont know why you are hassling her. Patient then returned back to my computer station where my medications were located, and asked Do you work 8 hour or 12 hour shifts. Informed the patient that I work 12 hour shifts here. The patient then said You are suppose to work 8 hour shifts. I dont know where you got these 12 hour shifts from. You probably made it up, but I am a Nurse, and I know what Im talking about, and we all work 8 hour shifts. Patient continued to make untoward comments regarding my ability of me to know if I worked 8 or 12 hour shifts for 15 minutes. Breakfast arrived and patient began to eat her food that had arrived. Patient continued to talk to herself during the entire breakfast, move from one seat to another all over the Community Room, then pick all of her papers back up and move again. Patients own volume continued to get louder and louder while she was delusional and talking out loud. The patients voice got so loud that multiple other peers came over to me and asked Can you tell her to quiet down? The patient was then asked to keep the noise down while others were reading books, listening to TV or watching movies. The patient lowered her voice a bit, but then it started going back up again. Patient then picked her papers up and relocated to her room, and fell asleep for about an hour. Patient came to the Community Room for lunch, and received snack in the Community Room. Patient did tell me at approximately 1100, I want my clothes because I am leaving today, and want to put my clothes on now. You cannot keep me here because Im here voluntarily. Informed the patient, as had Fernando and Stefani, PCT, that after the sees you, he will review your discharge with you, then the Techs will go through your belongings with you, and turn in all of your paperwork. Patient continued her negative banter and informed me Im not waiting for you to get my things, I will just get them myself. I told you I want them, Ill go get them myself and ask the tech myself. Patient then stated Im losing my patience with you. I walked away from the patient at that point and informed Fernando that she was thinking she is going home. S/I, H/I: Denies A/VH: Delusional self talk throughout the daytime. Sleep: 5.0 hours of sleep. Did not nap today. ADL's: Independent, Refuses to shower since admission. Group attendance: No Group Meeting Held Today. Were meds taken: Refused her scheduled Synthroid Any med S/E: None observed or reported. Mental Status Exam Appearance: Middle aged appearing woman, short brown hair, neat, wearing green unit scrubs Eye contact: Good Behavior: Resistive to care, anxious, intrusive, negative in all talk toward staff members, poor respect from peers due to negative talk. Speech: Clear, hyper-verbal Mood: Hypomanic Affect: Restive to Care, full range Thought process: Disorganized, Paranoid, tangential when speaking to herself. Thought Content: Refuses to engage in conversation. Cognition: A&O x3 to self, place and time Insight: Poor Judgment: Poor Interventions PRN's used: None Therapeutic interventions: 1:1 assessment, therapeutic communication, encouraged pt to express her thoughts and feelings, active listening, medication administration/education/monitoring, provided distraction, direction, positive reinforcement, and Q15 minute safety checks. Restraints/seclusion/emergency medication: None Justification of Continued Inpatient Treatment: Pt is still in need of medication adjustments and monitoring in a safe and therapeutic environment until stable.
[2022-04-01] MEDS: olanzapine 10mg tablet PO SCH (21:00)
--- NOTE | 2022-04-02 01:39 | NUR ---
Nursing Progress Note: Sandie Legal hold: Voluntary Client on involuntary for GD Report received from FRANK King with use of SBAR. Why they are here: 5150 states: Sandie is confused, disorganized in thought process. She is unable to report viable plan for food, clothing, and long-term, and has not benefitted from family support. Assessment What has happened this shift: Received patient sitting up in bed writing on notepaper with a stack of papers next to her. (She had just talked with WALT Kim.) Approached pt to assess mental status and the pt said to this headline writer I am too busy right now to talk to you, I just spoke to someone and Im not talking with you. Pt irritable and resistive to care. Pt was up in the community room for a snack holding her stack of papers. Later, the pt was observed walking the hallway requesting another snack. Pt refused HS medications. Pt observed in her room responding to internal stimuli. Pt is hyper verbal and talking to herself non-stop in her room. Pt told several times by PCT that her roommate is trying to sleep and could she be more considerate of other. WALT Kim will be discharging her tomorrow and place her on a 5150. Interventions PRN's used: None Therapeutic interventions: 1:1 assessment, therapeutic communication, encouraged pt to express her thoughts and feelings, active listening, medication administration/education/monitoring, provided distraction, direction, positive reinforcement, and Q15 minute safety checks. Restraints/seclusion/emergency medication: None Justification of Continued Inpatient Treatment: Pt is still in need of medication adjustments and monitoring in a safe and therapeutic environment until stable.
[2022-04-02] MEDS: levoTHYROXINE 25mcg tablet PO SCH (08:00)
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
[2022-04-02] MEDS: olanzapine 10mg tablet PO SCH (21:00)
--- NOTE | 2022-04-03 01:02 | NUR ---
Nursing Progress Note: Sandie Legal hold: Voluntary Client on involuntary for GD Report received from FRANK Hull with use of SBAR. Why they are here: 5150 states: Sandie is confused, disorganized in thought process. She is unable to report viable plan for food, clothing, and detention, and has not benefitted from family support. Assessment What has happened this shift: Received patient in the community room sitting with her stack of papers and having a drink of juice. When this RN greeted the pt with Hi the pt stated I say Hello, not Hi. She then states I just want to be left alone by myself; Im waiting for my family member. If I need anything Ill come to you. Pt refused Zyprexa stating I am trying to figure out my medications with my metal buildings assembler. Pt sits in her room after snacks and talks to herself most of the evening. Pt served her 5250 this evening. S/I, H/I: Denies A/VH: Delusional Sleep: ADL's: Independent, Refuses to shower since admission. Group attendance: Were meds taken: Refused Any med S/E: None observed or reported. Mental Status Exam Appearance: Middle aged appearing woman, short christiansen hair wearing green unit scrubs Eye contact: Good Behavior: Resistive to care, anxious, intrusive, negative in all talk toward staff members, poor respect from peers due to negative talk. Speech: Clear, hyper-verbal Mood: Hypomanic Affect: Restive to Care, full range Thought process: Disorganized, Paranoid, tangential when speaking to herself. Thought Content: Refuses to engage in conversation. Cognition: A&O x3 to self, place and time Insight: Poor Judgment: Poor Interventions PRN's used: None Therapeutic interventions: 1:1 assessment, therapeutic communication, encouraged pt to express her thoughts and feelings, active listening, medication administration/education/monitoring, provided distraction, direction, positive reinforcement, and Q15 minute safety checks. Restraints/seclusion/emergency medication: None Justification of Continued Inpatient Treatment: Pt is still in need of medication adjustments and monitoring in a safe and therapeutic environment until stable.
--- NOTE | 2022-04-03 07:00 | NUR ---
Patient refused weight.
[2022-04-03] MEDS: levoTHYROXINE 25mcg tablet PO SCH (08:00)
--- NOTE | 2022-04-03 09:30 | NUR ---
Pt. attended both groups offered today. In the first group we talked about Self Nurturing and how to curate spaces of nurture/self-care for themselves. The second group was an Art Expression where they had to draw things they would like to hold onto in their life and things that they wanted to let go of. Pt. engaged in the group in ways that could be disruptive. She did wait her turn to speak, raising her hand when she had something to say. When she would speak her thoughts were often circumstantial and would veer into loose associations. She did not take kindly to being redirected by this Site Auditor often engaging in an argument. Her thought content appeared to contain delusional/paranoid content. Her thought process was circumstantial. Her demeanor was a bit aggressive and difficult to work with. VIOLETA MarinW
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
[2022-04-03] MEDS: olanzapine 10mg tablet PO SCH (21:00)
--- NOTE | 2022-04-04 02:28 | NUR ---
Nursing Progress Note: Sandie Legal hold: 5250 Client on involuntary for GD Report received from Della MARIE with use of SBAR. Why they are here: 5150 states: Sandie is confused, disorganized in thought process. She is unable to report viable plan for food, clothing, and longterm, and has not benefitted from family support. Assessment What has happened this shift: Received patient in the community room watching TV with peers. Pt is hyper verbal when trying to talk about her mental status and her medication administration. Pt refused Zyprexa stated it wasnt what the Dr ordered and she doesnt want to talk about it. She states she wants a meeting with everyone so we all know what is going on with her. Pt participated at snack time in the community room with a mountain of paperwork which she carries around with her everywhere. Pt woke at 0200 hyper verbal, rambling on not making sense.pt re-directed back to bed. S/I, H/I: Denies A/VH: Delusional Sleep: 4.0 hours of sleep. ADL's: Independent, Refuses to shower since admission. Group attendance: Were meds taken: Refused Any med S/E: None observed or reported. Mental Status Exam Appearance: Middle aged appearing woman, short christiansen hair wearing green unit scrubs Eye contact: Good Behavior: Resistive to care, anxious, intrusive, negative in all talk toward staff members, poor respect from peers due to negative talk. Speech: Clear, Tangential Mood: Hypomanic Affect: Resistive to Care, full range Thought process: Disorganized, Paranoid, tangential when speaking to herself. Thought Content: Refuses to engage in conversation with staff member. Cognition: A&O x3 to self, place and time Insight: Poor Judgment: Poor Interventions PRN's used: None Therapeutic interventions: 1:1 assessment, therapeutic communication, encouraged pt to express her thoughts and feelings, active listening, medication administration/education/monitoring, provided distraction, direction, positive reinforcement, and Q15 minute safety checks. Restraints/seclusion/emergency medication: None Justification of Continued Inpatient Treatment: Pt is still in need of medication adjustments and monitoring in a safe and therapeutic environment until stable.
[2022-04-04] MEDS: levoTHYROXINE 25mcg tablet PO SCH (08:00)
--- NOTE | 2022-04-04 16:47 | NUR ---
Nursing Progress Note: Sandie Legal hold 5250 Client on involuntary for DTS Report received from FRANK Weller with use of SBAR. Why they are here: 5150 states: Sandie is confused, disorganized in her thought process. She is unable to report viable plan for food, clothing, and intermediate, and has not benefitted from family support. Assessment What has happened this shift: Received patient awake in bed. Pt. refused her routine medications this morning after requesting to see the medication in its package; underwriter provided, but pt. then stated I dont think I can trust this either, Iv talked to the people who need to know Pt. reused to participate with assessment, and asked underwriter to go away Pt. presents as self-isolating and paranoid. Pt. did eat her meals in the dining with cohorts. She was observed socializing with peer stating are you a psychopath or a rapist pt. alienates herself d/t her intrusiveness as other immediately get up and walk away. Later in the afternoon pt. was observed returning from lunch heading to her room and could be heard responding to IS. S/I, H/I: Refused A/VH: Refused, observed responding to IS Sleep: 3.25 hrs per NOC, no naps ADL's: Independent Group attendance: N/A Were meds taken: Refused Any med S/E: None observed or reported. Mental Status Exam Appearance: Middle aged female, disheveled, and wearing unit scrubs Eye contact: Fair Behavior: Irritable Speech: Hyper-verbal at times Mood: Dont talk to me Affect: Congruent with mood Thought process: Disorganized, paranoid Thought Content: Meeting needs Cognition: A&O x3 to self Insight: Poor Judgment: Poor Interventions PRN's used: None Therapeutic interventions: 1:1 assessment, therapeutic communication, encouraged pt to express her thoughts and feelings, active listening, medication administration/education/monitoring, provided distraction, direction, positive reinforcement, and Q15 minute safety checks. Restraints/seclusion/emergency medication: None Justification of Continued Inpatient Treatment: Pt is still in need of medication adjustments and monitoring in a safe and therapeutic environment until stable.
--- NOTE | 2022-04-04 17:04 | NUR ---
Pt. refused to be weighed today
--- NOTE | 2022-04-04 17:05 | NUR ---
Pt. refused to be weighed today Addendum: 04/04/22 at 1705 by Milagros Raza RN Amended: Links added.
[2022-04-04] MEDS: olanzapine 10mg tablet PO SCH (21:00)
--- NOTE | 2022-04-04 22:35 | NUR ---
Nursing Progress Note: Sandie Legal hold 5250 Client on involuntary for DTS Report received from FRANK Hull with use of SBAR. Why they are here: 5150 states: Sandie is confused, disorganized in her thought process. She is unable to report viable plan for food, clothing, and alf, and has not benefitted from family support. Assessment What has happened this shift: Pt was in the group room at change of shift. 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 Pt refused to take HS meds, stating "No I only get my meds from people who are physician assistants." Pt spent time calling a friend on the phone, had snack and then went to bed. S/I, H/I: Refused to answer A/VH: Refused, observed responding to IS Sleep:see sleep hours ADL's: Independent Group attendance: N/A Were meds taken: Refused Any med S/E: No meds taken Mental Status Exam Appearance: Middle aged female, disheveled, and wearing unit scrubs Eye contact: Fair Behavior: Irritable Speech: loud Mood: Labile Affect: bizzare Thought process: Disorganized, paranoid Thought Content: Meeting needs Cognition: A&O x3 to self Insight: Poor Judgment: Poor Interventions PRN's used: None Therapeutic interventions: 1:1 assessment, therapeutic communication, encouraged pt to express her thoughts and feelings, active listening, medication administration/education/monitoring, provided distraction, direction, positive reinforcement, and Q15 minute safety checks. Restraints/seclusion/emergency medication: None Justification of Continued Inpatient Treatment: Pt is still in need of medication adjustments and monitoring in a safe and therapeutic environment until stable.
[2022-04-05] MEDS: levoTHYROXINE 25mcg tablet PO SCH ×2 (07:15→07:33)
[2022-04-05 08:00] VITALS: BP 133/98
--- NOTE | 2022-04-05 16:49 | NUR ---
Nursing Progress Note: Sandie Legal hold 5250 Client on involuntary for DTS Report received from SANTA Weller with use of SBAR. Why they are here: 5150 states: Sandie is confused, disorganized in her thought process. She is unable to report viable plan for food, clothing, and alf, and has not benefitted from family support. Assessment What has happened this shift: Patient is awake in her room at the start of the shift. Carries a large messy stack of papers with her wherever she goes and is noted writing on them frequently. Uncooperative with 1:1 assessment. Refuses medication stating, I have to see them in their package. Medication is brought back to the patient sealed and labeled. Patient again refuses stating, You could have changed that in there. Tonya had people do that to me before. 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 She is intrusive with other patients especially when staff is speaking with them. Attempts to convince peers that she is knowledgeable about the medical field and encourages them to question staff. Patient is redirected. Noted talking to herself frequently and refers to herself sometimes in the plural- We instead of I. S/I, H/I: Denies A/VH: Denies but appears to be responding to internal stimuli Sleep: None noted this shift ADL's: Independent Group attendance: No Were meds taken: No. Refused Any med S/E: None observed or reported. Mental Status Exam Appearance: Middle aged female, neat, and wearing unit scrubs Eye contact: Fair Behavior: Resistive, Irritable Speech: Hyper-verbal at times Mood: Labile Affect: Congruent Thought process: Paranoid, Disorganized, tangential Thought Content: Worried about taking care of other patients on the unit. Cognition: A&O x3 to self Insight: Poor Judgment: Poor Interventions PRN's used: None Therapeutic interventions: 1:1 assessment, therapeutic communication, encouraged pt to express her thoughts and feelings, active listening, medication administration/education/monitoring, provided distraction, direction, positive reinforcement, and Q15 minute safety checks. Restraints/seclusion/emergency medication: None Justification of Continued Inpatient Treatment: Pt is still in need of medication adjustments and monitoring in a safe and therapeutic environment until stable.
[2022-04-05] MEDS: olanzapine 10mg tablet PO SCH (21:00)
--- NOTE | 2022-04-06 03:51 | NUR ---
Nursing Progress Note: Sandie Legal hold 5250 Client on involuntary for DTS Report received from SANTA King with use of SBAR. Why they are here: 5150 states: Sandie is confused, disorganized in her thought process. She is unable to report viable plan for food, clothing, and jail, and has not benefitted from family support. Assessment What has happened this shift: Patient was found sleeping at beginning of shift. When nurse tried to preform 1:1 she pretended to be asleep. Patient was observed later reading a book on her bed. Patient was polite until nurse brought up her scheduled medications. Patient stated she was not going to take the medication because it was the wrong kind. Patient would not believe that Zyprexa is what she was prescribed. Patient went to sleep until 2 am where she got and started arguing with one of the nurses. Patient got very upset that she could not have her personal inhaler. Patient went back to her room to write a complaint.
[2022-04-06] MEDS: levoTHYROXINE 25mcg tablet PO SCH (08:00)
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
[2022-04-06] MEDS: olanzapine 10mg tablet PO SCH (20:17)
--- NOTE | 2022-04-07 04:26 | NUR ---
Nursing Progress Note: Sandie Legal hold: Voluntary Client on involuntary for GD Report received from FRANK King with use of SBAR. Why they are here: 3798 states: Sandie is confused, disorganized in her thought process. She is unable to report viable plan for food, clothing, and longterm, and has not benefitted from family support. Assessment What has happened this shift: Patient was found sleeping at beginning of shift. Patient stayed in her room until nurse came in to preform 1;1 and talk to her over her night medications. Patient stated that she wasn't supposed to be taking Zyprexa only something for anxiety. She said she wont take any medications until Sandie can talk to an special investigation unit investigator about how medications are given here. Patient came out of her room to get coffee and then returned to her bed.
[2022-04-07] MEDS: levoTHYROXINE 25mcg tablet PO SCH (08:00)
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
[2022-04-07] MEDS: olanzapine 10mg tablet PO SCH (20:03)
--- NOTE | 2022-04-08 00:22 | NUR ---
Client on involuntary for GD Report received from MAX Machuca with use of SBAR. Why they are here: 2722 states: Sandie is confused, disorganized in her thought process. She is unable to report viable plan for food, clothing, and skilled nursing, and has not benefitted from family support. Assessment What has happened this shift: Received patient pacing the halls. Pt. continues to present as delusional and paranoid. Pt. stated I'm just worried you are going to poison me with the medication" Pt tearful, and voicing delusions. Pt did c/o anxiety and was agreeable to take her hs zyprexa as the nurse assured her it would help her anxiety and that it would not kill her. Pt asleep by 2144. S/I, H/I: Refused A/VH: Refused, observed responding to IS Sleep: see sleep log ADL's: Independent Group attendance: No Were meds taken: yes Any med S/E: None observed or reported. Mental Status Exam Appearance: Middle aged female, short hair, and wearing unit scrubs Eye contact: Fair Behavior: Irritable Speech: Hyper-verbal at times Mood: Hypomanic Affect: Congruent with mood Thought process: Disorganized, paranoid, delusional Thought Content: Meeting needs Cognition: A&O x3 to self Insight: Poor Judgment: Poor Interventions PRN's used: None Therapeutic interventions: 1:1 assessment, therapeutic communication, encouraged pt to express her thoughts and feelings, active listening, medication administration/education/monitoring, provided distraction, direction, positive reinforcement, and Q15 minute safety checks. Restraints/seclusion/emergency medication: None Justification of Continued Inpatient Treatment: Pt is still in need of medication adjustments and monitoring in a safe and therapeutic environment until stable.
--- NOTE | 2022-04-08 07:32 | NUR ---
Reassessment: Pt continues eating well with mostly 75-100% PO intake of meals and appears to be participating in snacks per recoverer. Overall meeting estimated nutrient needs. [facility] 04/06. No nutrition intervention implemented at this time. Will continue to follow. Recommendations: 1) Continue regular diet 2) Bowel care PRN 3) Weekly scaled weights Addendum: 04/08/22 at [address] Amended: Links added.
[2022-04-08] MEDS: levoTHYROXINE 25mcg tablet PO SCH (08:00)
--- NOTE | 2022-04-08 16:17 | NUR ---
Nursing Progress Note: Legal hold: 5270 Client on involuntary for GD Report received from Sandra Skaggs RN with use of SBAR. Why they are here: 5150 states: Sandie is confused, disorganized in her thought process. She is unable to report viable plan for food, clothing, and nursing home, and has not benefitted from family support. Assessment What has happened this shift: Received pt. awake at change of shift, nurse introduced self, pt. was not interested in conversing with designer/writer. Pt. refused routine medications as well as assessment. Pt. informed nurse she would let me know if she needed anything. Pt. has been up walking the halls seen responding to internal stimuli and carrying papers covered in written notes. Pt. refused VS, assessment. S/I, H/I: Refused A/VH: Refused, observed responding to IS Sleep: 7.5 hrs per NOC, no naps ADL's: Independent Group attendance: No groups today Were meds taken: Refused Any med S/E: None observed or reported. Mental Status Exam Appearance: Middle aged female, disheveled short hair, and wearing unit scrubs Eye contact: Fair Behavior: Resistant to care Speech: Hyper-verbal at times Mood: Delusional, paranoid Affect: Blunted Thought process: Disorganized Thought Content: Meeting needs Cognition: A&O x3 Insight: Poor Judgment: Poor Interventions PRN's used: None Therapeutic interventions: 1:1 assessment, therapeutic communication, encouraged pt to express her thoughts and feelings, active listening, medication administration/education/monitoring, provided distraction, direction, positive reinforcement, and Q15 minute safety checks. Restraints/seclusion/emergency medication: None Justification of Continued Inpatient Treatment: Pt is still in need of medication adjustments and monitoring in a safe and therapeutic environment until stable.
[2022-04-08] MEDS: olanzapine 10mg tablet PO SCH (21:00)
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
[2022-04-09] MEDS: levoTHYROXINE 25mcg tablet PO SCH (08:00)
--- NOTE | 2022-04-09 15:44 | NUR ---
Nursing Progress Note Legal hold: 527 Client on involuntary for GD Report received from RN with use of SBAR. Why they are here: 5150 states: Sandie is confused, disorganized in her thought process. She is unable to report viable plan for food, clothing, and long term, and has not benefitted from family support. Assessment What has happened this shift: Received Pt in her room awake and in no distress at change of shift. Pt refused AM vitals except Temp. Pt refused medications and allowed partial assessment process and remains paranoid, believing staff will poison her. Pt hyperverbal and does not allow others to speak when attempting to converse with her. Pt verbally intrusive and demanding at times. She walks around with a large amount of papers in her hand and adds to them with writings and picking up papers in community room. She ate meals well with others in community room. Pt needs limits set on her intrusive questioning of other Pts. Pt met with Pt rights advocates today. Pt placed on 5270 and told that reice will be filed today as well. S/I, H/I: Refused A/VH: Refused, observed responding to IS Sleep: 5.5 hrs per NOC, no naps ADL's: Independent Group attendance: No Were meds taken: Refused Any med S/E: None observed or reported. Mental Status Exam Appearance: Disheveled Eye contact: Fair Behavior: Resistant to care, intrusive Speech: Hyper-verbal Mood: Delusional, paranoid Affect: Blunted Thought process: Disorganized Thought Content: Meeting needs Cognition: A&O x3 Insight: Poor Judgment: Poor Interventions PRN's used: None Therapeutic interventions: 1:1 assessment, therapeutic communication, encouraged pt to express her thoughts and feelings, active listening, medication administration/education/monitoring, provided distraction, direction, positive reinforcement, and Q15 minute safety checks. Restraints/seclusion/emergency medication: None Justification of Continued Inpatient Treatment: Pt is still in need of medication adjustments and monitoring in a safe and therapeutic environment until stable.
[2022-04-09 19:27] VITALS: BP 112/80
[2022-04-09] MEDS: olanzapine 10mg tablet PO SCH (20:30)
--- NOTE | 2022-04-09 20:37 | NUR ---
Nursing Progress Note Legal hold: 5270 Client on involuntary for GD Report received from RN with use of SBAR. Why they are here: 5150 states: Sandie is confused, disorganized in her thought process. She is unable to report viable plan for food, clothing, and skilled nursing, and has not benefitted from family support. Assessment What has happened this shift: Pt was in the group room at change of shift. Isolating to self and watching tv. Pt sat in group room coloring and had evening snack. Pt took HS meds after stating "I only take one pill, I'm going to need a printout for this." Pt was given Olanzapine and a printout for it. Pt is carrying a large stack of papers and states she doesnt like sitting in the light so she is sitting in a dark corner of the group room. S/I, H/I: denies A/VH: refused to answer, appears to be RIS Sleep:see sleep hors ADL's: Independent Group attendance: No Were meds taken: yes Any med S/E: None observed or reported. Mental Status Exam Appearance: Disheveled Eye contact: Fair Behavior: Resistant to care, isolating to herself sitting in the corner Speech: quiet Mood: Delusional, paranoid Affect: Blunted Thought process: Disorganized Thought Content: Meeting needs Cognition: A&O x3 Insight: Poor Judgment: Poor Interventions PRN's used: None Therapeutic interventions: 1:1 assessment, therapeutic communication, encouraged pt to express her thoughts and feelings, active listening, medication administration/education/monitoring, provided distraction, direction, positive reinforcement, and Q15 minute safety checks. Restraints/seclusion/emergency medication: None Justification of Continued Inpatient Treatment: Pt is still in need of medication adjustments and monitoring in a safe and therapeutic environment until stable.
[2022-04-10] MEDS: levoTHYROXINE 25mcg tablet PO SCH (07:03)
--- NOTE | 2022-04-10 12:22 | NUR ---
RIESE/CAPACITY HEARING TODAY WAS UPHELD BY JUDGE ARMAS
[2022-04-10] MEDS: busPIRone 5mg tablet PO SCH ×2 (12:36→21:07)
--- NOTE | 2022-04-10 15:53 | NUR ---
Nursing Progress Note: Sandie Legal hold: 5270 Client on involuntary for GD Report received from SANTA Weller with use of SBAR. Why they are here: 5150 states: Sandie is confused, disorganized in her thought process. She is unable to report viable plan for food, clothing, and fci, and has not benefitted from family support. Assessment What has happened this shift: Patient is awake in her room at the start of the shift. Refuses to have vital signs checked. Refuses AM thyroid medication. Refuses weekly weight. Patient is disagreeable with what this film writer says. She perseverates on writing complaints about the staff she doesnt like and makes legal threats towards staff. Carries a large messy stack of paper which she writes on. Sujit hearing held this morning resulting in the patient being Reesed. New order for buspar is given to the patient as ordered. Patient pours 2 buspar pills into her hand and drops one on the floor. Takes one pill but tries to refuse the other. States, It fell on the floor so it doesnt count. I know about medication counts and if you get another one it will count against you and it will count against me. Patient is educated on medication. Requests to talk to the provider which she does. After talking to the provider the patient requires more encouragement to take her buspar but she is eventually cooperative. Patient spends time in community areas and is intrusive with peers frequently asking them what is wrong with them and how staff is treating them. Patient also spends time in her room and is noted talking to herself when alone. S/I, H/I: Denies A/VH: Denies. Appears to be responding to internal stimuli Sleep: None noted this shift. ADL's: Independent Group attendance: Yes Were meds taken: Refused AM thyroid meds, takes 1300 Buspar but requires much encouragement Any med S/E: None observed or reported. Mental Status Exam Appearance: Middle aged appearing woman, disheveled wearing green unit scrubs. Eye contact: Good Behavior: Resistive to care, intrusive, carries papers and writes on them. Speech: Hyper-verbal Mood: Appears irritable Affect: Constricted Thought process: Disorganized, delusional, paranoid Thought Content: Writing complaints about staff Cognition: A&O x3 not to situation Insight: Poor Judgment: Poor Interventions PRN's used: Tylenol Therapeutic interventions: 1:1 assessment, therapeutic communication, encouraged pt to express her thoughts and feelings, active listening, medication administration/education/monitoring, provided distraction, direction, positive reinforcement, and Q15 minute safety checks. Restraints/seclusion/emergency medication: None Justification of Continued Inpatient Treatment: Pt is still in need of medication adjustments and monitoring in a safe and therapeutic environment until stable.
[2022-04-10 19:10] VITALS: BP 132/87
[2022-04-10] MEDS: olanzapine 10mg tablet PO SCH (20:00)
[2022-04-10] MEDS: divalproex sod 250mg ER (24-hour) tablet PO SCH (21:07)
--- NOTE | 2022-04-10 21:08 | NUR ---
Nursing Progress Note: Sandie Legal hold: 5270 Client on involuntary for GD Report received from SANTA Hendricks with use of SBAR. Why they are here: 5150 states: Sandie is confused, disorganized in her thought process. She is unable to report viable plan for food, clothing, and residential, and has not benefitted from family support. Assessment What has happened this shift: Pt was in group room at change of shift, socializing with other patients and watching tv. Pt states she is doing good and talks about having a superior court judge in her family. Pt states "Im done talking to you, I dont need to hear what you say." Pt was offered meds at and pt requested print outs on each med and was provided with printouts. She then states that she needs to call her family before she can take her meds. Pt made a phone call and was speaking in a bizzare language. 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 S/I, H/I: Denies A/VH: Denies. Appears to be responding to internal stimuli Sleep: see sleep hours ADL's: Independent Group attendance: Yes Were meds taken: yes Any med S/E: None observed or reported. Mental Status Exam Appearance: Middle aged appearing woman, disheveled wearing green unit scrubs. Eye contact: Good Behavior: Resistive to care, intrusive, carries papers and writes on them. Speech: Hyper-verbal Mood: Labile Affect: Constricted Thought process: Disorganized, delusional, paranoid Thought Content: states she think she is going to be murdered taking meds Cognition: A&O x3 not to situation Insight: Poor Judgment: Poor Interventions PRN's used: None Therapeutic interventions: 1:1 assessment, therapeutic communication, encouraged pt to express her thoughts and feelings, active listening, medication administration/education/monitoring, provided distraction, direction, positive reinforcement, and Q15 minute safety checks. Restraints/seclusion/emergency medication: None Justification of Continued Inpatient Treatment: Pt is still in need of medication adjustments and monitoring in a safe and therapeutic environment until stable.
[2022-04-11] MEDS: busPIRone 5mg tablet PO SCH ×3 (08:05→21:01)
[2022-04-11] MEDS: levoTHYROXINE 25mcg tablet PO SCH (08:05)
[2022-04-11] MEDS: olanzapine 10mg tablet PO SCH ×2 (08:05→20:00)
--- NOTE | 2022-04-11 09:19 | NUR ---
PT AGREED TO HAVE HER TEMP. TAKEN THEN REFUSED ALL OTHER VITALS.
--- NOTE | 2022-04-11 16:19 | NUR ---
Nursing Progress Note: Legal hold: 5270 Client on involuntary for GD Report received from SANTA Weller with use of SBAR. Why they are here: 5150 states: Sandie is confused, disorganized in her thought process. She is unable to report viable plan for food, clothing, and senior living, and has not benefitted from family support. Assessment What has happened this shift: Pt up walking around in the halls with a handful of papers. Pt requested the phone at 0700. Phone provided to pt. Pt allowed to have her temp checked then refuses to have all other vital signs checked. At med pass pt dropped one thyroid pill on the floor. Reluctantly took the new pill after much coaching and education. Pt spent the day sleeping in her bed. She c/o stating, "you just want me drugged." Pt is seen throughout the shift talking to herself while on her bed and in the halls. S/I, H/I: Denies A/VH: Denies. Appears to be responding to internal stimuli Sleep: Slept most of the shift ADL's: Independent Group attendance: Yes Were meds taken: Yes; requires encouragement and time Any med S/E: None observed or reported. Mental Status Exam Appearance: Middle aged woman, wearing green unit scrubs. Eye contact: Good Behavior: Resistive to care, disorganized Speech: Hyper-verbal Mood: Appears irritable Affect: Constricted Thought process: Disorganized, delusional, paranoid Thought Content: "You're drugging me" Cognition: A&O x3 not to situation Insight: Poor Judgment: Poor Interventions PRN's used: N/A Therapeutic interventions: Attempts made to provide 1:1 assessment, therapeutic communication, encouraged pt to express her thoughts and feelings, active listening, medication administration/education/monitoring, provided distraction, direction, positive reinforcement, and Q15 minute safety checks. Restraints/seclusion/emergency medication: None Justification of Continued Inpatient Treatment: Pt is still in need of medication adjustments and monitoring in a safe and therapeutic environment until stable.
[2022-04-11] MEDS: divalproex sod 250mg ER (24-hour) tablet PO SCH (21:01)
--- NOTE | 2022-04-11 21:01 | NUR ---
Nursing Progress Note: Legal hold: 5270 Client on involuntary for GD Report received from [facility] with use of SBAR. Why they are here: 5150 states: Sandie is confused, disorganized in her thought process. She is unable to report viable plan for food, clothing, and [facility], and has not benefitted from family support. Assessment What has happened this shift: Pt was in the group room at change of shift, carrying her pile of paperwork and socializing with peers. Pt continues to appear to be RIS. Pt denies s/i. Pt states she would rather be in [place] with her "Chavez" and states this field underwriter was at her house with "[employer]". Assured patient I dont know anyone named "[employer]". Pt talked about 3 men on her property doing drugs. Pt c/o medication making her feel tired and is fearful she will . Reassured patient that we will check on her throughout the night and reminded patient she took the same medicine last night. Pt is resting in bed before going to sleep. S/I, H/I: Denies A/VH: Denies. Appears to be responding to internal stimuli Sleep: see sleep hours ADL's: Independent Group attendance: Yes Were meds taken: Yes Any med S/E: None observed or reported. Mental Status Exam Appearance: Middle aged woman, wearing green unit scrubs. Eye contact: Good Behavior: Resistive to care, disorganized Speech: Hyper-verbal Mood: anxious Affect: Constricted Thought process: Disorganized, delusional, paranoid Thought Content: going to [place] Cognition: A&O x3 not to situation Insight: Poor Judgment: Poor Interventions PRN's used: N/A Therapeutic interventions: Attempts made to provide 1:1 assessment, therapeutic communication, encouraged pt to express her thoughts and feelings, active listening, medication administration/education/monitoring, provided distraction, direction, positive reinforcement, and Q15 minute safety checks. Restraints/seclusion/emergency medication: None Justification of Continued Inpatient Treatment: Pt is still in need of medication adjustments and monitoring in a safe and therapeutic environment until stable. Addendum: 04/12/22 at 0359 by Deanna Zarco RN Pt came to nurses station crying and stating she was worried her family is never going to pick her up and she will stay here forever. Pt was emotional and anxious and asking for something to help with anxiety. PRN ativan given and pt returned to bed.
[2022-04-12] MEDS ORDERED: LORazepam 1 MG tablet PO ONE ×2 (00:40→22:30)
[2022-04-12] MEDS: olanzapine 10mg tablet PO SCH ×2 (07:50→20:50)
[2022-04-12] MEDS: levoTHYROXINE 25mcg tablet PO SCH (07:50)
[2022-04-12] MEDS: busPIRone 5mg tablet PO SCH ×3 (07:51→20:50)
--- NOTE | 2022-04-12 15:06 | NUR ---
Nursing Progress Note: Legal hold: 5270 Client on involuntary for GD Report received from [facility] with use of SBAR. Why they are here: 5150 states: Sandie is confused, disorganized in her thought process. She is unable to report viable plan for food, clothing, and jail, and has not benefitted from family support. Assessment What has happened this shift: At the beginning of the shift pt observed walking around in her room with a handful of papers held close to her chest. Again, pt only allowed the tech to take her temperature. Pt is heard from the halls talking to herself while on her bed. Pt napped on and off throughout the shift. 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 She tells this check writer salesperson, "I know how to pass medicine so you need to do it right." She eventually is compliant with taking her pills. S/I, H/I: Denies A/VH: Denies. Appears to be responding to internal stimuli Sleep: Slept intermittently ADL's: Independent Group attendance: Yes Were meds taken: Yes; requires encouragement and time Any med S/E: None observed or reported. Mental Status Exam Appearance: Middle aged woman, wearing green unit scrubs. Eye contact: Good Behavior: Resistive to care, disorganized Speech: Hyper-verbal Mood: Appears irritable Affect: Constricted Thought process: Disorganized, delusional, paranoid Thought Content: "You're drugging me" Cognition: A&O x3 not to situation Insight: Poor Judgment: Poor Interventions PRN's used: N/A Therapeutic interventions: Attempts made to provide 1:1 assessment, therapeutic communication, encouraged pt to express her thoughts and feelings, active listening, medication administration/education/monitoring, provided distraction, direction, positive reinforcement, and Q15 minute safety checks. Restraints/seclusion/emergency medication: None Justification of Continued Inpatient Treatment: Pt is still in need of medication adjustments and monitoring in a safe and therapeutic environment until stable.
[2022-04-12] MEDS: divalproex sod 250mg ER (24-hour) tablet PO SCH (20:50)
--- NOTE | 2022-04-13 03:36 | NUR ---
RN PROGRESS NOTE: LEGAL HOLD: 5270 for GD THIS SHIFT: Client was on the unit walking around carrying paperwork. Client refused to take medications until she received a print out of all her medication orders and stated, "I don't want to be given the wrong medications or the wrong amount. 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 Client interrupted this RN and stated "I don't want to talk about that." Client was given a print-out of med orders. Client did not look at the print out and set it on her bed. Client then took her medications. Client demanded her inhaler stating, "I want my inhaler. It's in my things. I'm short of breath." Clients respirations were unlabored and her respiratory rate was 16 breaths/min. This RN stated that RT would be notified if clients Pulse Ox and respiratory effort indicated a need for a neb treatment. Client stated "OK, If I I don't want you to give me mouth to mouth! I only want my to do that!" and walked away. Client was overheard talking to unseen others in her room. Client came to the RN station crying stating, "I want to make sure my kids are ok." She then returned to her room.
[2022-04-13] MEDS: busPIRone 5mg tablet PO SCH ×3 (08:00→19:59)
[2022-04-13] MEDS: olanzapine 10mg tablet PO SCH ×2 (08:00→19:59)
[2022-04-13] MEDS: levoTHYROXINE 25mcg tablet PO SCH (08:00)
[2022-04-13] MEDS: LORazepam 1 MG tablet PO PRN (11:24)
--- NOTE | 2022-04-13 16:37 | NUR ---
Nursing Progress Note: Sandie Legal hold: 5270 Client on involuntary for GD Report received from Sandra Skaggs RN with use of SBAR. Why they are here: 2640 states: Sandie is confused, disorganized in her thought process. She is unable to report viable plan for food, clothing, and senior living, and has not benefitted from family support. Assessment What has happened this shift: Received patient awake ambulating in the perkins. Pt. allowed pattern chart writer to complete 1:1 assessment after several requests. Pt. refused to verbalize her last BM instead only providing it in written form. Pt. denies SI, HI, but presents as guarded stating I dont really believe you Pt. was complaint with medications. Pt. presents as delusional stating I dont want to see Berrios because Im not to the [facility] Pt. ate her meals in the main dining room with cohorts, but isolates to self not engaging socially. Later in the morning pt. reported to pattern chart writer I need my inhaler I have a lot of anxiety full assessment completed, no s/sx of respiratory distress, O2 sats at 95% on RA, PRN Ativan given; pt reports I feel better. Pt. observed ambulating in perkins appearing disheveled and carrying stacks of hand written papers. Pt. offered a shower; she refused. At 1300 med pass pt. swallowed half of her Buspar dose and spit the other half out. Managing Director [employer] attempted to educate the importance of taking the full dose, but pt. reported I know I work for [employer], you dont think I know. S/I, H/I: Denies A/VH: Denies Sleep: 5.5 hrs per NOC, 1 hr nap today ADL's: Independent Group attendance: No Were meds taken: Yes, with one exception of partial dose of Busbar at 1300. Any med S/E: None observed or reported. Mental Status Exam Appearance: Middle aged female, short hair, and wearing unit scrubs Eye contact: Fair Behavior: Semi cooperative Speech: Hyper verbal at times Mood: Paranoid, guarded Affect: Congruent with mood Thought process: Disorganized, paranoid, delusional Thought Content: Meeting needs Cognition: A&O x3 to self Insight: Poor Judgment: Poor Interventions PRN's used: Ativan Therapeutic interventions: 1:1 assessment, therapeutic communication, encouraged pt to express her thoughts and feelings, active listening, medication administration/education/monitoring, provided distraction, direction, positive reinforcement, and Q15 minute safety checks. Restraints/seclusion/emergency medication: None Justification of Continued Inpatient Treatment: Pt is still in need of medication adjustments and monitoring in a safe and therapeutic environment until stable.
[2022-04-13] MEDS: divalproex sod 250mg ER (24-hour) tablet PO SCH (20:00)
--- NOTE | 2022-04-14 02:23 | NUR ---
Nursing Progress Note: Sandie Legal hold: 5270 Client on involuntary for GD Report received from Fernando MARIE with use of SBAR. Why they are here: 6167 states: Sandie is confused, disorganized in her thought process. She is unable to report viable plan for food, clothing, and long term, and has not benefitted from family support. Assessment What has happened this shift: Received patient lying in bed resting. Awhile later pt was observed to be in the community room with her head resting on the table along with her pile of paper. Pt initially refused meds stating that she is so tired and groggy she needs to take a break however after waiting half an hour patient took meds without any issue. Pt had snacks and then went to bed. S/I, H/I: Denies A/VH: Denies Sleep: ADL's: Independent Group attendance: No Were meds taken: Yes, Any med S/E: None observed or reported. Mental Status Exam Appearance: Middle aged female, short hair, and wearing unit scrubs Eye contact: Fair Behavior: Semi cooperative Speech: Hyper verbal at times Mood: Paranoid, guarded Affect: Congruent with mood Thought process: Disorganized, paranoid, delusional Thought Content: Meeting needs Cognition: A&O x3 to self Insight: Poor Judgment: Poor Interventions PRN's used: Therapeutic interventions: 1:1 assessment, therapeutic communication, encouraged pt to express her thoughts and feelings, active listening, medication administration/education/monitoring, provided distraction, direction, positive reinforcement, and Q15 minute safety checks. Restraints/seclusion/emergency medication: None Justification of Continued Inpatient Treatment: Pt is still in need of medication adjustments and monitoring in a safe and therapeutic environment until stable.
[2022-04-14] MEDS: olanzapine 10mg tablet PO SCH ×2 (07:29→20:15)
[2022-04-14] MEDS: busPIRone 5mg tablet PO SCH ×3 (07:29→20:15)
[2022-04-14] MEDS: levoTHYROXINE 25mcg tablet PO SCH (07:29)
--- NOTE | 2022-04-14 15:38 | NUR ---
Nursing Progress Note: Sandie Legal hold: 5270 Client on involuntary for GD Report received from Sandra Skaggs RN with use of SBAR. Why they are here: 5150 states: Sandie is confused, disorganized in her thought process. She is unable to report viable plan for food, clothing, and intermediate, and has not benefitted from family support. Assessment What has happened this shift: Received patient asleep in her bed. Pt. woke for meal prompt and 1:1 assessment. Pt. initially refused but then participated. Pt. denies SI, HI, she presents as delusional stating she was admitted d/t [employer] clearance Pt. was complaint with medications. Pt. randomly discussed being to [facility] and states I cant talk to you anymore, please go Pt. appears disheveled, refused a shower and collected a large stack of hand written papers which she carried down the perkins. Pt. ate her meals in the main dining room with cohorts, but continues to isolate from others. Later in the morning pt. stopped near telegraphic typewriter installer and asked can you wake me up at snack time she then proceeded to her room. Pt. attended snack and was pleasant. Shortly after she approached a staff member stating tell Julio Anthony done answering questions S/I, H/I: Denies A/VH: Denies Sleep: 7.75 hrs per NOC, 1 hr nap today ADL's: Independent Group attendance: No Were meds taken: Yes Any med S/E: None observed or reported. Mental Status Exam Appearance: Middle aged female, short hair, and wearing unit scrubs Eye contact: Fair Behavior: Semi cooperative Speech: Hyper verbal at times Mood: Suspicious, guarded Affect: Congruent with mood Thought process: Disorganized Thought Content: Meeting needs Cognition: A&O x3 to self Insight: Poor Judgment: Poor Interventions PRN's used: None Therapeutic interventions: 1:1 assessment, therapeutic communication, encouraged pt to express her thoughts and feelings, active listening, medication administration/education/monitoring, provided distraction, direction, positive reinforcement, and Q15 minute safety checks. Restraints/seclusion/emergency medication: None Justification of Continued Inpatient Treatment: Pt is still in need of medication adjustments and monitoring in a safe and therapeutic environment until stable.
[2022-04-14] MEDS: divalproex sod 250mg ER (24-hour) tablet PO SCH (20:15)
--- NOTE | 2022-04-15 02:02 | NUR ---
Nursing Progress Note: Sandie Legal hold: 5270 Client on involuntary for GD Report received from Fernando MARIE with use of SBAR. Why they are here: 5150 states: Sandie is confused, disorganized in her thought process. She is unable to report viable plan for food, clothing, and senior care, and has not benefitted from family support. Assessment What has happened this shift: Received patient in the hallway pacing. When asked how the patient is doing today she said I am good every day and not everyone knows this but I am good all day. She then says to this board writer fengy I know you from that [facility], you took me to my car and did my COVID test. Explained to the pt that this board writer never worked there she said oh yes you did, and so did Lazaro Rojas and Henri. Pt participated in snacks and took all HS medications without issue. S/I, H/I: Denies A/VH: Denies Sleep: ADL's: Independent Group attendance: No Were meds taken: Yes Any med S/E: None observed or reported. Mental Status Exam Appearance: Middle aged female, short hair, and wearing unit scrubs Eye contact: Fair Behavior: Semi cooperative Speech: Hyper verbal at times Mood: Suspicious, guarded Affect: Congruent with mood Thought process: Disorganized Thought Content: Meeting needs Cognition: A&O x3 to self Insight: Poor Judgment: Poor Interventions PRN's used: None Therapeutic interventions: 1:1 assessment, therapeutic communication, encouraged pt to express her thoughts and feelings, active listening, medication administration/education/monitoring, provided distraction, direction, positive reinforcement, and Q15 minute safety checks. Restraints/seclusion/emergency medication: None Justification of Continued Inpatient Treatment: Pt is still in need of medication adjustments and monitoring in a safe and therapeutic environment until stable.
[2022-04-15] MEDS: busPIRone 5mg tablet PO SCH ×3 (08:29→20:15)
[2022-04-15] MEDS: levoTHYROXINE 25mcg tablet PO SCH (08:29)
[2022-04-15] MEDS: olanzapine 10mg tablet PO SCH (08:29)
--- NOTE | 2022-04-15 09:48 | NUR ---
Reassessment: Pt continues eating well with mostly 100% PO intake of meals and appears to be participating in snacks per assistant floor covering printer. Overall meeting estimated nutrient needs. [facility] 04/12. No nutrition intervention implemented at this time. Will continue to follow. Recommendations: 1) Continue regular diet 2) Bowel care PRN 3) Weekly scaled weights Addendum: 04/15/22 at [address] Amended: Links added.
--- NOTE | 2022-04-15 13:59 | NUR ---
Nursing Progress Note: Legal hold: 5270 Client on involuntary for GD Report received from Sandra Skaggs RN with use of SBAR. Why they are here: 5150 states: Sandie is confused, disorganized in her thought process. She is unable to report viable plan for food, clothing, and [facility], and has not benefitted from family support. Assessment What has happened this shift: Received patient asleep in her bed. Pt. woke for meal prompt and 1:1 assessment. Pt argumentative with medications and attempts to hide pills in stack of paperwork prior to taking them. Pt eventually takes her meds and argues the whole time. Pt accuses this nurse of stinking and inflaming her asthma. Nurse uses no odiferous products. Pt. appears disheveled, refused a shower and collected a large stack of hand written papers which she carries around in her room. Pt did not carry her paperwork around the unit as much as she normally does. Pt continues calling this nurse "Rupert" who looks like someones brother . Pt accuses nurse of threatening her and she is afraid of nurse while nurse is walking away and greater than 20 feet away from her. Pt. ate her meals in the main dining room with cohorts, but continues to isolate from others. S/I, H/I: Denies A/VH: Denies Sleep: at night ADL's: Independently refuses with encouragement Group attendance: No Were meds taken: Yes Any med S/E: None observed or reported. Mental Status Exam Appearance: Middle aged female, short hair, and wearing unit scrubs Eye contact: good Behavior: argumentative Speech: Hyper verbal at times Mood: Suspicious, guarded Affect: Congruent with mood Thought process: Disorganized Thought Content: Meeting needs Cognition: A&O x3 to self Insight: Poor Judgment: Poor Interventions PRN's used: None Therapeutic interventions: 1:1 assessment, therapeutic communication, encouraged pt to express her thoughts and feelings, active listening, medication administration/education/monitoring, provided distraction, direction, positive reinforcement, and Q15 minute safety checks. Restraints/seclusion/emergency medication: None Justification of Continued Inpatient Treatment: Pt is still in need of medication adjustments and monitoring in a safe and therapeutic environment until stable.
[2022-04-15] MEDS: OLANZAPINE 5 MG TABLET PO SCH (20:15)
[2022-04-15] MEDS: divalproex sod 250mg ER (24-hour) tablet PO SCH (20:16)
--- NOTE | 2022-04-16 03:44 | NUR ---
Nursing Progress Note: Legal hold: 5270 Client on involuntary for GD Report received from FRANK King with use of SBAR. Why they are here: 5150 states: Sandie is confused, disorganized in her thought process. She is unable to report viable plan for food, clothing, and residential, and has not benefitted from family support. Assessment What has happened this shift: Patient seen at bedside for 1:1. She is irritable, and does not want to talk to me. She continues to say I look like somebody. I said, I look like me. "No, I know you from somewhere." Yes, from here. Patient denies all MH symptoms. I asked about her responding to IS. "Oh no, I only do that when I'm bored. Just to make time pass." Patient is oppositional to almost anything. When HS meds given to her, "there's too many in there. Are you trying to OD me?" Assured her that no that was not happening. Explained to her that her meds were being increased to maximize effectiveness. "Well. nobody told me." She tried to not take the increase, but finally relented and took all of them. S/I, H/I: Denies A/VH: Denies Sleep: See sleep assessment ADL's: Independent Group attendance: No Were meds taken: Yes Any med S/E: None observed or reported. Mental Status Exam Appearance: Middle aged female, short hair, and wearing unit scrubs Eye contact: Fair Behavior: Semi cooperative, guarded Speech: Hyper verbal at times Mood: Suspicious, guarded Affect: Congruent with mood Thought process: Disorganized Thought Content: Meeting needs Cognition: A&O x3 to self Insight: Poor Judgment: Poor Interventions PRN's used: None Therapeutic interventions: 1:1 assessment, therapeutic communication, encouraged pt to express her thoughts and feelings, active listening, medication administration/education/monitoring, provided distraction, direction, positive reinforcement, and Q15 minute safety checks. Restraints/seclusion/emergency medication: None Justification of Continued Inpatient Treatment: Pt is still in need of medication adjustments and monitoring in a safe and therapeutic environment until stable.
[2022-04-16] MEDS: levoTHYROXINE 25mcg tablet PO SCH (07:30)
[2022-04-16] MEDS: olanzapine 10mg tablet PO SCH (07:30)
[2022-04-16] MEDS: busPIRone 5mg tablet PO SCH ×3 (07:30→20:08)
[2022-04-16 08:10] VITALS: BP 105/75
--- NOTE | 2022-04-16 13:36 | NUR ---
Pt. attended group today. We talked about how we all look at the world differently due to our core beliefs. These core beliefs then inform thoughts and behaviors. Each pt. identified one negative core belief and then wrote out three truths that contradict their negative beliefs to work on thinking differently. Pt. was in and out of the group today. She appeared lethargic and sleepy. She didn't really add any of her thoughts to the topic. She just sat quietly when she was in the group. Angie Pollack, CHIMNEY BUILDER
--- NOTE | 2022-04-16 16:35 | NUR ---
Nursing Progress Note: Sandie Legal hold: 5270 Client on involuntary for GD Report received from [facility] with use of SBAR. Why they are here: 5150 states: Sandie is confused, disorganized in her thought process. She is unable to report viable plan for food, clothing, and custodial, and has not benefitted from family support. Assessment What has happened this shift: Received patient asleep in her bed. Pt. awoke for 1:1 assessment. Pt. denies SI, HI, she presents as delusional stating she was admitted d/tlies and presented with flights of ideas AEB our her communications my daughter had lice she was 13years old, I like that color on your ring, the toenail clippers are important when discussing discharge plans she reported Ill be happy to get out of here Pt. was cooperative and tolerated freelance writer, compared to previous interactions a few days ago. Pt. presents with less suspicion, but remains guarded and request to see the packages of her meds before administration. She was observed sitting in the group room for most of the day, a Pt. ate her meals in the main dining room with cohorts, but continues to isolate from others. Pt. observed pacing in the unit, but with a smaller stack of papers. S/I, H/I: Denies A/VH: Denies Sleep: 7.5 hrs per NOC, 1 hr nap today ADL's: Independent Group attendance: Yes Were meds taken: Yes Any med S/E: None observed or reported. Mental Status Exam Appearance: Middle aged female, short hair, and wearing unit scrubs Eye contact: Fair Behavior: Cooperative, delusional Speech: Hyper verbal at times Mood: Guarded Affect: Congruent with mood Thought process: Disorganized, flight of ideas Thought Content: Meeting needs Cognition: A&O x3 to self Insight: Poor Judgment: Poor Interventions PRN's used: None Therapeutic interventions: 1:1 assessment, therapeutic communication, encouraged pt to express her thoughts and feelings, active listening, medication administration/education/monitoring, provided distraction, direction, positive reinforcement, and Q15 minute safety checks. Restraints/seclusion/emergency medication: None Justification of Continued Inpatient Treatment: Pt is still in need of medication adjustments and monitoring in a safe and therapeutic environment until stable.
[2022-04-16 20:00] VITALS: BP 122/74
[2022-04-16] MEDS: divalproex sod 250mg ER (24-hour) tablet PO SCH (20:07)
[2022-04-16] MEDS: OLANZAPINE 5 MG TABLET PO SCH (20:08)
--- NOTE | 2022-04-17 02:47 | NUR ---
Nursing Progress Note: Legal hold: 5270 Client on involuntary for GD Report received from FRANK King with use of SBAR. Why they are here: 5150 states: Sandie is confused, disorganized in her thought process. She is unable to report viable plan for food, clothing, and skilled nursing, and has not benefitted from family support. Assessment What has happened this shift: Patient seen at bedside for 1:1. Patient seems to be less suspicious of staff, but not her medications. Tonight there were two different Depakote pill shapes that was not easy for her to understand. She had to see all the packages before she would take the medicine. "If I od, my people know I'm here and they are FBI, so you'll be in big trouble. Patient continues to carry a big stack of papers around, but it looks like there are less than before. She is very protective of them. Patient spent most of the evening in her room, but comes down for snack time. She was compliant with HS meds, then went back to her room. S/I, H/I: Denies A/VH: Denies, but is heard responding to IS Sleep: See sleep assessment ADL's: Independent Group attendance: No Were meds taken: Yes Any med S/E: None observed or reported. Mental Status Exam Appearance: Middle aged female, short hair, and wearing unit scrubs Eye contact: Fair Behavior: Semi cooperative, guarded Speech: Hyper verbal at times Mood: Suspicious, guarded Affect: Congruent with mood Thought process: Disorganized Thought Content: Meeting needs Cognition: A&O x3 to self Insight: Poor Judgment: Poor Interventions PRN's used: None Therapeutic interventions: 1:1 assessment, therapeutic communication, encouraged pt to express her thoughts and feelings, active listening, medication administration/education/monitoring, provided distraction, direction, positive reinforcement, and Q15 minute safety checks. Restraints/seclusion/emergency medication: None Justification of Continued Inpatient Treatment: Pt is still in need of medication adjustments and monitoring in a safe and therapeutic environment until stable.
[2022-04-17 08:00] VITALS: BP 108/63
[2022-04-17] MEDS: busPIRone 5mg tablet PO SCH ×3 (08:41→21:00)
[2022-04-17] MEDS: olanzapine 10mg tablet PO SCH (08:41)
[2022-04-17] MEDS: levoTHYROXINE 25mcg tablet PO SCH (08:42)
--- NOTE | 2022-04-17 09:45 | NUR ---
Pt. attended both groups today. We talked about the functioning of the Limbic System and how it relates to anxiety, depression and anger. The second group was an Art Expression group called Feelings Opposites where they expressed opposite emotions and did a dialogue with these emotions. Pt. came in and out of both groups, she talked about being very tired and reported she thinks she is overmedicated. She left early in the first one, in the second group she came in half way through the group. Her thought content and thought process was WNL. Her demeanor was calm and compliant Angie Pollack LCSW.
--- NOTE | 2022-04-17 16:35 | NUR ---
Nursing Progress Note Legal hold: 5270 Client on involuntary for GD Report received from SANTA Weller with use of SBAR Why they are here: 5150 states: Sandie is confused, disorganized in her thought process. She is unable to report viable plan for food, clothing, and half-way, and has not benefitted from family support. Assessment What has happened this shift: Received Pt in bed sleeping at the beginning of this shift. Pt woke and was cooperative with vitals and returned to sleep. Pt woke for breakfast and ate all meals well. Pt took AM meds after showing her unopened packages and her seeing names and doses. She was friendly and attempted to joke around a bit. Pt states the meds make me tired. I need to be outside doing things. Pt napped and spoke to Julio GODOY around lunch time. Overall pleasant and cooperative while talking in grandiose ways. Pt also seen by hospitalist today and was cooperative with his assessments. S/I, H/I: Denies A/VH: Denies. Talks to self often Sleep: Napped ADL's: Independent Group attendance: Yes Were meds taken: Yes Any med S/E: None observed or reported Mental Status Exam Appearance: Casual in scrubs Eye contact: Good Behavior: Isolative Speech: Hyper-verbal at times Mood: Mild anxiety Affect: Constricted Thought process: Disorganized Thought Content: Wanting to leave Cognition: A&O x3 not to situation Insight: Poor Judgment: Poor Interventions PRN's used: N/A Therapeutic interventions: 1:1 assessment, therapeutic communication, encouraged pt to express her thoughts and feelings, active listening, medication administration/education/monitoring, provided distraction, direction, positive reinforcement, and Q15 minute safety checks. Restraints/seclusion/emergency medication: None Justification of Continued Inpatient Treatment: Pt is still in need of medication adjustments and monitoring in a safe and therapeutic environment until stable.
[2022-04-17] MEDS: albuterol 2.5 MG/3 ML nebule NEB PRN (16:57)
[2022-04-17 20:00] VITALS: BP_SYST 108; BP_SYST 113; BP_DIAS 63; BP_DIAS 78
[2022-04-17] MEDS: OLANZAPINE 5 MG TABLET PO SCH (21:01)
[2022-04-17] MEDS: divalproex sod 250mg ER (24-hour) tablet PO SCH (21:01)
--- NOTE | 2022-04-18 01:24 | NUR ---
Nursing Progress Note Legal hold: 5270 Client on involuntary for GD Report received from RN with use of SBAR Why they are here: 5158 states: Sandie is confused, disorganized in her thought process. She is unable to report viable plan for food, clothing, and custodial, and has not benefitted from family support. Assessment What has happened this shift: Received Pt in community room finishing dinner. Pt was watching TV and talking with others. Pt was cooperative with vitals and PM assessments. Pt returned to her room after snack and eventually took all HS meds with prompting and patience. Pt complained that meds were increased w/o her being told. She was reassured and Depakote level would be drawn in AM. Pt paranoid that meds will kill her Hes going to kill me with all this. Pt went to bed and is sleeping w/o distress. S/I, H/I: Denies A/VH: Denies. Talks to self often Sleep: See sleep assessment ADL's: Independent Group attendance: NA Were meds taken: Yes Any med S/E: None observed or reported Mental Status Exam Appearance: Casual in scrubs Eye contact: Good Behavior: Isolative Speech: Hyper-verbal at times Mood: Mild anxiety Affect: Constricted Thought process: Disorganized Thought Content: Wanting to leave Cognition: A&O x3 not to situation Insight: Poor Judgment: Poor Interventions PRN's used: N/A Therapeutic interventions: 1:1 assessment, therapeutic communication, encouraged pt to express her thoughts and feelings, active listening, medication administration/education/monitoring, provided distraction, direction, positive reinforcement, and Q15 minute safety checks. Restraints/seclusion/emergency medication: None Justification of Continued Inpatient Treatment: Pt is still in need of medication adjustments and monitoring in a safe and therapeutic environment until stable.
[2022-04-18 07:48] VITALS: BP 106/72
[2022-04-18] MEDS: busPIRone 5mg tablet PO SCH ×3 (08:09→20:15)
[2022-04-18] MEDS: levoTHYROXINE 25mcg tablet PO SCH (08:09)
[2022-04-18] MEDS: olanzapine 10mg tablet PO SCH (08:10)
--- NOTE | 2022-04-18 16:42 | NUR ---
Nursing Progress Note: Sandie Legal hold: 5270 Client on involuntary for GD Report received from [facility] with use of SBAR. Why they are here: 5150 states: Sandie is confused, disorganized in her thought process. She is unable to report viable plan for food, clothing, and snf, and has not benefitted from family support. Assessment What has happened this shift: Received patient awake and walking in the perkins. Pt. greeted law writer in a very pleasant manor. After breakfast 1:1 assessment completed at the bedside. Pt. denies SI, HI, she continues to claim she was admitted d/t lies and he discharge plans is go with [place] Pt. was cooperative and pleasant compared to [past interactions. Pt. did go off on a tagine briefly, stating theses meds arent needed all the time, do u want them, medications are poisonous to me Pt. remains guarded and request to see the packages of all meds before administration. She was awake most of the shift, she ate all her meals in the main ding room with cohorts, but sits at a table alone and doesnt engage socially. Deckhand Clam Dredge observed a small stack of handwritten papers being carried around by pt. S/I, H/I: Denies A/VH: Denies Sleep: 7.25 hrs per NOC, 1 hr nap today ADL's: Independent Group attendance: Yes Were meds taken: Yes, with hesitation Any med S/E: None observed or reported. Mental Status Exam Appearance: Middle aged female, short hair, and wearing unit scrubs Eye contact: Fair Behavior: Cooperative, irritable at times Speech: Pressured Mood: Guarded Affect: Congruent with mood Thought process: Disorganized Thought Content: Meeting needs Cognition: A&O x3 Insight: Poor Judgment: Poor Interventions PRN's used: None Therapeutic interventions: 1:1 assessment, therapeutic communication, encouraged pt to express her thoughts and feelings, active listening, medication administration/education/monitoring, provided distraction, direction, positive reinforcement, and Q15 minute safety checks. Restraints/seclusion/emergency medication: None Justification of Continued Inpatient Treatment: Pt is still in need of medication adjustments and monitoring in a safe and therapeutic environment until stable.
[2022-04-18 20:00] VITALS: BP 99/54
[2022-04-18] MEDS: OLANZAPINE 5 MG TABLET PO SCH (20:14)
[2022-04-18] MEDS: divalproex sod 250mg ER (24-hour) tablet PO SCH (20:14)
--- NOTE | 2022-04-19 01:36 | NUR ---
Nursing Progress Note: Sandie Legal hold: 5270 Client on involuntary for GD Report received from [facility] with use of SBAR. Why they are here: 5150 states: Sandie is confused, disorganized in her thought process. She is unable to report viable plan for food, clothing, and residential, and has not benefitted from family support. Assessment What has happened this shift: Received patient lying in bed resting. Later, pt was observed in the community room watching TV with peers. Pt stated she had a good day and is still feeling tired from all these meds. During snack time pt took all HS medications without issue. She stated wanted to talk to a family member about something but could not tell this resume writer what it was about. 04/18: Valproic acid results 102 S/I, H/I: Denies A/VH: Denies Sleep: ADL's: Independent Group attendance: Were meds taken: Yes Any med S/E: None observed or reported. Mental Status Exam Appearance: Middle aged female, short hair, and wearing unit scrubs Eye contact: Fair Behavior: Cooperative, irritable at times Speech: Pressured Mood: Guarded Affect: Congruent with mood Thought process: Disorganized Thought Content: Meeting needs Cognition: A&O x3 Insight: Poor Judgment: Poor Interventions PRN's used: None Therapeutic interventions: 1:1 assessment, therapeutic communication, encouraged pt to express her thoughts and feelings, active listening, medication administration/education/monitoring, provided distraction, direction, positive reinforcement, and Q15 minute safety checks. Restraints/seclusion/emergency medication: None Justification of Continued Inpatient Treatment: Pt is still in need of medication adjustments and monitoring in a safe and therapeutic environment until stable.
[2022-04-19] MEDS: levoTHYROXINE 25mcg tablet PO SCH (07:44)
[2022-04-19] MEDS: olanzapine 10mg tablet PO SCH (07:44)
[2022-04-19] MEDS: busPIRone 5mg tablet PO SCH ×3 (07:44→20:24)
[2022-04-19 08:00] VITALS: BP 115/74
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
[2022-04-19] MEDS: OLANZAPINE 5 MG TABLET PO SCH (20:24)
[2022-04-19] MEDS: divalproex sod 250mg ER (24-hour) tablet PO SCH (20:24)
[2022-04-19 20:38] VITALS: BP 106/80
--- NOTE | 2022-04-20 01:28 | NUR ---
Nursing Progress Note Sandie Legal hold: 5270 Client on involuntary for GD Report received from S[facility] Weller with use of SBAR Why they are here: 5150 states: Sandie is confused, disorganized in her thought process. She is unable to report viable plan for food, clothing, and fdc, and has not benefitted from family support. Assessment What has happened this shift: Received Pt in community room watching TV with a few stacks of paper. Pt states she is doing really good. She spoke with Julio price who told her she was doing well and might be discharging soon. Pt states she has property here in [facility] and also a vehicle in her name. She stated she likes to keep to herself because sometimes people do her wrong. Pt participates in snack and took all HS medications without issue. S/I, H/I: Denies A/VH: Denies. Sleep: ADL's: Independent Group attendance: Yes Were meds taken: Yes Any med S/E: None observed or reported Mental Status Exam Appearance: Casual in scrubs Eye contact: Good Behavior: Isolative Speech: Pressured when engaged Mood: Mild anxiety Affect: Constricted Thought process: Disorganized Thought Content: People she lives with Cognition: A&O x3 not to situation Insight: Poor Judgment: Poor Interventions PRN's used: N/A Therapeutic interventions: 1:1 assessment, therapeutic communication, encouraged pt to express her thoughts and feelings, active listening, medication administration/education/monitoring, provided distraction, direction, positive reinforcement, and Q15 minute safety checks. Restraints/seclusion/emergency medication: None Justification of Continued Inpatient Treatment: Pt is still in need of medication adjustments and monitoring in a safe and therapeutic environment until stable.
[2022-04-20 08:00] VITALS: BP 91/51
[2022-04-20] MEDS: levoTHYROXINE 25mcg tablet PO SCH (08:07)
[2022-04-20] MEDS: olanzapine 10mg tablet PO SCH (08:07)
[2022-04-20] MEDS: busPIRone 5mg tablet PO SCH ×3 (08:07→20:17)
--- NOTE | 2022-04-20 16:44 | NUR ---
Nursing Progress Note: Sandie Legal hold: 5270 Client on involuntary for GD Report received from [facility] with use of SBAR. Why they are here: 5150 states: Sandie is confused, disorganized in her thought process. She is unable to report viable plan for food, clothing, and senior care, and has not benefitted from family support. Assessment What has happened this shift: Received patient asleep, awoke to attend breakfast without issue. After breakfast meds administered without issue, and 1:1 assessment completed. Pt. denies SI, HI, and minimizes MH needs, she reported Im going to my property when I leave herePt. was receptive to her assessment and was very cordial with staff. Pt. ate all meals in the main dining room with cohorts. Pt. observed socializing nanda one to two pts. Pt. napped after breakfast. Pt. later was observed ambulating briefly on the unit, and also carrying small stack of handwritten papers. Pt. did request to see the packaging of her medications, but was compliant. Pt. presents as guarded, bit no delusional statements were made. S/I, H/I: Denies A/VH: Denies Sleep: 6 hrs per NOC, 1 hr nap today ADL's: Independent Group attendance: Yes Were meds taken: Yes, with hesitation Any med S/E: None observed or reported. Mental Status Exam Appearance: Middle aged female, short hair, and wearing unit scrubs Eye contact: Fair Behavior: Cooperative Speech: Pressured at times Mood: Guarded at times Affect: Congruent with mood Thought process: Linear at times Thought Content: Meeting needs Cognition: A&O x3 Insight: Fair Judgment: Fair Interventions PRN's used: None Therapeutic interventions: 1:1 assessment, therapeutic communication, encouraged pt to express her thoughts and feelings, active listening, medication administration/education/monitoring, provided distraction, direction, positive reinforcement, and Q15 minute safety checks. Restraints/seclusion/emergency medication: None Justification of Continued Inpatient Treatment: Pt is still in need of medication adjustments and monitoring in a safe and therapeutic environment until stable.
[2022-04-20 20:00] VITALS: BP 124/73
[2022-04-20] MEDS: albuterol 2.5 MG/3 ML nebule NEB PRN (20:08)
[2022-04-20] MEDS: OLANZAPINE 5 MG TABLET PO SCH (20:15)
[2022-04-20] MEDS: divalproex sod 250mg ER (24-hour) tablet PO SCH (20:16)
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
[2022-04-21 08:00] VITALS: BP 92/46
[2022-04-21] MEDS: levoTHYROXINE 25mcg tablet PO SCH (08:09)
[2022-04-21] MEDS: busPIRone 5mg tablet PO SCH ×3 (08:09→21:30)
[2022-04-21] MEDS: olanzapine 10mg tablet PO SCH (08:09)
[2022-04-21] MEDS: LORazepam 1 MG tablet PO PRN (11:25)
[2022-04-21] MEDS ORDERED: docusate sod 100mg capsule PO ONE (12:55)
--- NOTE | 2022-04-21 15:16 | NUR ---
NURSING PROGRESS NOTE Problem: GD/5270 0800 states: Sandie is confused, disorganized in her thought process. She is unable to report viable plan for food, clothing, and jail, and has not benefitted from family support. Interventions: Pt is alert and oriented X4, 1:1 done in community room per pt. request. Pt. cooperative with medication administration. Pt. states she slept ok but sleeps better at home. Her visited her today, pt. was seen emotional during this visitation. She left the community room several times and was seen crying. Once left she requested her PRN Ativan stating she wasnt upset with her or with Julio, the PA. She was upset with J Luis, a man who calls and tells the doctors things that are not true. Pt. then changed the subject. Pt. utilized the phone often this shift. Response: Sandie is much more receptive with treatment then she has been with health underwriter in the past. Medication administration was no issue, she only requested to see the packages the medications were dispensed in to be sure they were the right medications. PRN Ativan effective with treating increased anxiety. Plan: Continue to maintain a safe and supportive environment, ensure contract for safety, monitor behaviors and provide redirection as needed, encourage independent performance of ADLs and provide assistance as needed. Administer scheduled medications. Pt is still in need of medication adjustments and monitoring in a safe and therapeutic environment until stable.
[2022-04-21 20:00] VITALS: BP 116/67
[2022-04-21] MEDS: divalproex sod 250mg ER (24-hour) tablet PO SCH (21:00)
[2022-04-21] MEDS: OLANZAPINE 5 MG TABLET PO SCH (21:20)
--- NOTE | 2022-04-21 23:07 | NUR ---
NURSING PROGRESS NOTE Problem : 5150 states: Sandie is confused, disorganized in her thought process. She is unable to report viable plan for food, clothing, and senior care, and has not benefitted from family support. Interventions : Maintained a safe and supportive environment, ensured contract for safety, monitored behaviors and provided redirection as needed, encouraged independent performance of ADLs and provided assistance as needed. Administered scheduled medications. Response : Pt is on the phone with her at shift change. She eats snack in the community room. When HS medication time came around, 1,250 mg of Depakote was ordered, but pt refused this dose. I take 2 of these pills not 5 of these pills, I take 500 mg, Julio never told me he was changing this. PT did take the 500mg of Depakote but refused the rest of the dose. Ivette paperwork was checked, and Depakote is not one of the medications that are court ordered. PT did take the rest of her ordered medications (buspar and Zyprexa). As pt was taking her medications she states, Yea I am not trying to get killed, I am trying to get off medications, not on more. Medications are bad for your insides. Plan : Pt is still in need of medication adjustments and monitoring in a safe and therapeutic environment until stable.
[2022-04-22] MEDS: busPIRone 5mg tablet PO SCH ×3 (08:15→20:17)
[2022-04-22] MEDS: levoTHYROXINE 25mcg tablet PO SCH (08:15)
[2022-04-22] MEDS: olanzapine 10mg tablet PO SCH (08:15)
--- NOTE | 2022-04-22 13:43 | NUR ---
Nursing Progress Note Legal hold: [id number] Client on involuntary for GD Report received from [facility] with use of SB[facility] Why they are here: 5150 states: Sandie is confused, disorganized in her thought process. She is unable to report viable plan for food, clothing, and custodial, and has not benefitted from family support. Assessment What has happened this shift: Pt sleeping at beginning of shift. Pt up for breakfast and was cooperative with am assessment and medications. Pt came to visit and they had a nice visit. Pt denies aud perkins. but appears internally preoccupied at times. Pt cooperative with am assessment and medications. S/I, H/I: Denies A/VH: Denies. Talks to self often Sleep: Napped ADL's: Independent Group attendance: Yes Were meds taken: Yes Any med S/E: None observed or reported Mental Status Exam Appearance: Casual in scrubs Eye contact: Good Behavior: Isolative Speech: Hyper-verbal at times Mood: Mild anxiety Affect: Constricted Thought process: Disorganized Thought Content: Wanting to leave Cognition: A&O x3 not to situation Insight: Poor Judgment: Poor Interventions PRN's used: N/A Therapeutic interventions: 1:1 assessment, therapeutic communication, encouraged pt to express her thoughts and feelings, active listening, medication administration/education/monitoring, provided distraction, direction, positive reinforcement, and Q15 minute safety checks. Restraints/seclusion/emergency medication: None Justification of Continued Inpatient Treatment: Pt is still in need of medication adjustments and monitoring in a safe and therapeutic environment until stable.
[2022-04-22 19:39] VITALS: BP 132/94
[2022-04-22] MEDS: divalproex sod 250mg ER (24-hour) tablet PO SCH (20:16)
[2022-04-22] MEDS: OLANZAPINE 5 MG TABLET PO SCH (20:17)
--- NOTE | 2022-04-23 02:59 | NUR ---
NURSING PROGRESS NOTE: Problem : 5150 states: Sandie is confused, disorganized in her thought process. She is unable to report viable plan for food, clothing, and longterm, and has not benefitted from family support. Interventions : Maintained a safe and supportive environment, ensured contract for safety, monitored behaviors and provided redirection as needed, encouraged independent performance of ADLs and provided assistance as needed. Administered scheduled medications. Response: The patient was in the group room on the phone. She hung up and approached me, starting a conversation. She reports that her doctor told her she can leave tonight or tomorrow. This radio script writer didn't question it, as I don't believe it is true. She was on the phone most of the evening, but hung up for HS med pass. She took them all, not questioning the dosage, but asked, "these are not going to od me are they? Because I'm already scared of too many medicines." Patient did not request any PRNs. Plan : Pt is still in need of medication adjustments and monitoring in a safe and therapeutic environment until stable.
[2022-04-23] MEDS: levoTHYROXINE 25mcg tablet PO SCH (07:36)
[2022-04-23] MEDS: busPIRone 5mg tablet PO SCH ×3 (07:36→20:20)
[2022-04-23] MEDS: olanzapine 10mg tablet PO SCH (07:36)
[2022-04-23] MEDS ORDERED: docusate sod 100mg capsule PO SCH (08:00)
[2022-04-23 08:11] VITALS: BP 117/77
[2022-04-23] MEDS: albuterol 2.5 MG/3 ML nebule NEB PRN (08:35)
--- NOTE | 2022-04-23 10:15 | NUR ---
Pt. attended group today. Todays group was about the difference between Growth Mindset vs. Fixed Mindset. We learned about the differences and then discussed what aspect of developing a growth mindset they wanted to work on. Pt. engaged in the group when she was asked a question but spent mostly was in and out of the group. She appeared to have a hard time staying in her seat for too long. Her demeanor was calm and pleasant. Angie Pollack, [employer]EL[employer]
[2022-04-23] MEDS: LORazepam 1 MG tablet PO PRN (14:48)
--- NOTE | 2022-04-23 16:39 | NUR ---
NURSING PROGRESS NOTE Problem: GD/5270 0448 states: Sandie is confused, disorganized in her thought process. She is unable to report viable plan for food, clothing, and mcfp, and has not benefitted from family support. Interventions: Pt is alert and oriented X4. Pt. cooperative with medication administration. Pt spends most of her time in her room. Pt attempted to call her today and was unable to reach him. She became panicked and required Ativan prn. Explained to pt the phones were not operating at that time and the phones will be fixed soon to contact him later. PT able to relax in her room Response: Pt took her medications without issue or discussion. PRN Ativan effective with treating increased anxiety. Plan: Continue to maintain a safe and supportive environment, ensure contract for safety, monitor behaviors and provide redirection as needed, encourage independent performance of ADLs and provide assistance as needed. Administer scheduled medications. Pt is still in need of medication adjustments and monitoring in a safe and therapeutic environment until stable.
[2022-04-23] MEDS: OLANZAPINE 5 MG TABLET PO SCH (20:20)
[2022-04-23] MEDS: divalproex sod 250mg ER (24-hour) tablet PO SCH (20:20)
[2022-04-23 20:40] VITALS: BP 115/73
--- NOTE | 2022-04-24 04:45 | NUR ---
NURSING PROGRESS NOTE: Problem : 5150 states: Sandie is confused, disorganized in her thought process. She is unable to report viable plan for food, clothing, and care home, and has not benefitted from family support. Interventions : Maintained a safe and supportive environment, ensured contract for safety, monitored behaviors and provided redirection as needed, encouraged independent performance of ADLs and provided assistance as needed. Administered scheduled medications. Response: Patient seen in the community room. She is clean, and has started to care about her personal hygiene and ADLs. She has become more pleasant to converse with and less oppositional. Patient believes she is at baseline. "I have been here a month and I'm better now. My dog needs me, so I'm ready to go. Patient has not shown any insight into her illness or the role that medication has played in her gains. She continues to be compliant with medications and did not question them tonight. Plan : Pt is still in need of medication adjustments and monitoring in a safe and therapeutic environment until stable.
[2022-04-24] MEDS: busPIRone 5mg tablet PO SCH (07:27)
[2022-04-24] MEDS: olanzapine 10mg tablet PO SCH (07:27)
[2022-04-24] MEDS: levoTHYROXINE 25mcg tablet PO SCH (07:27)
[2022-04-24 07:30] VITALS: BP 116/73
--- NOTE | 2022-04-24 07:44 | NUR ---
Reassessment: Pt continues eating well with mostly 100% PO intake of meals and appears to be participating in snacks per imaging manager. Overall meeting estimated nutrient needs. [facility] 04/22. No nutrition intervention implemented at this time. Will continue to follow. Recommendations: 1) Continue regular diet 2) Bowel care PRN 3) Weekly scaled weights Addendum: 04/24/22 at [address] Amended: Links added.
[2022-04-24 08:00] VITALS: BP 116/73
[2022-04-24] MEDS ORDERED: DIVA250T8 PO (09:52)
[2022-04-24] MEDS ORDERED: LEVO25TA2 PO (09:52)
[2022-04-24] MEDS ORDERED: BUSP5TAB26 PO (09:52)
[2022-04-24] MEDS ORDERED: OLAN15TA35 PO (09:52)
[2022-04-24] MEDS ORDERED: OLAN10TA73 PO (09:52)
[2022-04-24] MEDS ORDERED: ALBU18HF2 INH (09:52)
[2022-04-24] MEDS: LORazepam 1 MG tablet PO PRN (11:38)
--- NOTE | 2022-04-24 12:45 | NUR ---
DISCHARGE NOTE: Pt. discharged to home, picked up by her . Pt. discharged with all belongings and valuables. RN went over all discharge paperwork with pt. including f/u plan and medications, 5150 gun prohibition and right to hearing, and emergency phone numbers including 911. Pt. verbalized understanding and signed all d/c paperwork. Pt. is A&Ox4 and in no apparent distress. Pt. denies SI/HI, A/V hallucinations.
== END 2022-04-24 13:47 | disposition home or self-care (01) | DRG 885 ==
LOC: ER 11:07 → ED HOLD 16:00 → ADULT MH 21:29
PROVIDERS: ADMIT Psychiatry & Neurology Psychiatry; ATTEND Psychiatry & Neurology Psychiatry
DX: F31.9 Bipolar disorder, unspecified (principal); F23 Brief psychotic disorder; N30.00 Acute cystitis without hematuria; E66.3 Overweight; E03.9 Hypothyroidism, unspecified; F60.3 Borderline personality disorder; Z20.822 Contact with and (suspected) exposure to COVID-19; G89.29 Other chronic pain; M54.50 Low back pain, unspecified; J45.909 Unspecified asthma, uncomplicated; Z79.890 Hormone replacement therapy; Z90.49 Acquired absence of other specified parts of digestive tract; Z68.39 Body mass index [BMI] 39.0-39.9, adult; Z79.899 Other long term (current) drug therapy
CPT/HCPCS: 36415; 80053; 80061; 80164; 80305; 80320; 81001; 81025; 83036; 84443; 85025; 87081; 87635; 94640; 94760; 99285; C9803

== ENCOUNTER 2022-10-15 12:27 | Emergency (ER) | payer MEDICARE, MEDICAID ==
[~2022-10-15] VITALS: Ht 157.5 cm; Wt 120.0 kg
[~2022-10-15 12:27] MED LIST changes: +ALBU18HF2 INH; -ALBU8HFA PO; +BUSP5TAB26 PO; +DIVA250T8 PO; +LEVO25TA2 PO; +OLAN10TA73 PO; +OLAN15TA35 PO
[2022-10-15 13:04] LABS: BASOPHILS # (AUTO) 0.1 X10'3 (0-0.2); BASOPHILS % (AUTO) 0.8 % (0-1); EOSINOPHILS # (AUTO) 0.2 X10'3 (0-0.9); HEMATOCRIT 43.3 % (35.0-45.0); LYMPHOCYTES % (AUTO) 44.9 % (21-51); MEAN CORPUSCULAR HEMOGLOBIN 31.8 PG (27.0-31.0); MEAN CORPUSCULAR HGB CONC 34.7 g/dL (33.0-36.5); MEAN CORPUSCULAR VOLUME 91.6 FL (78-98); MONOCYTES # (AUTO) 0.5 X10'3 (0-0.9); MONOCYTES % (AUTO) 7.2 % (2-12); NEUTROPHILS # (AUTO) 2.9 X10'3 (1.8-7.7); NEUTROPHILS % (AUTO) 44.1 % (42-75); PLATELET COUNT 274 X10'3 (140-440); RED BLOOD COUNT 4.73 X10'6 (4.20-5.60); RED CELL DISTRIBUTION WIDTH 12.6 % (11.5-14.5); WHITE BLOOD COUNT 6.6 X10'3 (4.5-11.0)
[2022-10-15 13:17] LABS: ALANINE AMINOTRANSFERASE 54 U/L (12-78); ALBUMIN 3.7 G/DL (3.4-5.0); ALKALINE PHOSPHATASE 104 IU/L (46-116); ANION GAP 7 (8-16); ASPARTATE AMINO TRANSFERASE 31 U/L (10-37); BILIRUBIN,TOTAL 0.4 MG/DL (0.1-1.0); BLOOD UREA NITROGEN 13 MG/DL (7-18); BUN/CREATININE RATIO 16.7 (6.6-38.0); CHLORIDE 102 MMOL/L (99-107); CREATININE 0.78 MG/DL (0.40-0.90); GLUCOSE 99 MG/DL (70-104); POTASSIUM 4.2 MMOL/L (3.5-5.1); SODIUM 139 MMOL/L (135-145); TOTAL CARBON DIOXIDE 29.7 MMOL/L (24-32); TOTAL PROTEIN 7.5 G/DL (6.4-8.2); eGFR 78 ML/MIN
[2022-10-15 13:24] LABS: CALCIUM 9.1 MG/DL (8.5-10.1)
[2022-10-15 15:47] VITALS: BP 121/69
== END 2022-10-15 17:01 | disposition home or self-care (01) ==
LOC: ER 12:28
DX: R07.9 Chest pain, unspecified (principal); E03.9 Hypothyroidism, unspecified; G89.29 Other chronic pain; M54.9 Dorsalgia, unspecified; F32.A Depression, unspecified; J45.909 Unspecified asthma, uncomplicated; F15.10 Other stimulant abuse, uncomplicated; Z79.899 Other long term (current) drug therapy
CPT/HCPCS: 36415; 71045; 80053; 83880; 84484; 85025; 93005; 99285

== ENCOUNTER 2022-10-27 06:11 | Emergency (ER) | payer MEDICARE, MEDICAID ==
[~2022-10-27] VITALS: Ht 157.5 cm; Wt 118.2 kg
[2022-10-27 06:26] VITALS: BP 135/84
== END 2022-10-27 10:00 | disposition left against medical advice (07) ==
LOC: ER 06:11
DX: R05.9 Cough, unspecified (principal); J45.909 Unspecified asthma, uncomplicated; E03.9 Hypothyroidism, unspecified; G89.29 Other chronic pain; M54.50 Low back pain, unspecified; F15.20 Other stimulant dependence, uncomplicated; Z98.890 Other specified postprocedural states; Z90.49 Acquired absence of other specified parts of digestive tract; Z87.891 Personal history of nicotine dependence
CPT/HCPCS: 99281

== ENCOUNTER 2023-07-14 03:20 | Emergency (ER) | payer MEDICARE, MEDICAID | END 2023-07-14 03:49 | disposition left against medical advice (07) | LOC: ER 03:21 | DX: Z00.8 Encounter for other general examination (principal); Z53.21 Procedure and treatment not carried out due to patient leaving prior to being seen by health care provider ==

== ENCOUNTER 2024-03-26 09:38 | Day surgery (SDC) | payer MEDICARE, MEDICAID ==
[~2024-03-26] VITALS: Ht 157.5 cm; Wt 120.5 kg
[2024-03-26] MEDS ORDERED: LEVO50CA4 PO (10:13)
[2024-03-26] MEDS ORDERED: OLAN5TAB29 PO (10:14)
[2024-03-26] MEDS ORDERED: ALBU8HFA INH (10:14)
[2024-03-26 10:15] VITALS: BP 141/92; PULSE 86; RESP 18
[2024-03-26] MEDS ORDERED: BUSP10TA11 PO (10:15)
[2024-03-26] MEDS ORDERED: fentaNYL/PF 50MCG/1 ML 2ML syringe ONE (11:34)
[2024-03-26] MEDS ORDERED: diphenhydrAMINE 50 mg/ml inj ONE (11:35)
[2024-03-26] MEDS ORDERED: LIDOcaine 2% Viscous 15ml cup ONE (11:35)
[2024-03-26] MEDS ORDERED: MIDAZolam 1 MG/ML 5ML VIAL ONE (11:35)
[2024-03-26 12:03] VITALS: BP 149/73; PULSE 63; RESP 16; O2SAT 96
[2024-03-26 12:13] VITALS: BP 113/53; PULSE 55; RESP 16; O2SAT 96
[2024-03-26 12:23] VITALS: BP 109/69; PULSE 50; RESP 16; O2SAT 97
[2024-03-26 12:33] VITALS: BP 104/66; PULSE 63; RESP 16; O2SAT 96
== END 2024-03-26 12:41 | disposition home or self-care (01) ==
LOC: GI LAB 09:38
PROVIDERS: ATTEND Internal Medicine Gastroenterology
DX: K92.1 Melena (principal); K29.70 Gastritis, unspecified, without bleeding
CPT/HCPCS: 43239; J1200; J2250; J3010; J7030; Z7512; 99152; A4620